=== PATIENT | male | born 1965 | race Caucasian/White ===

== ENCOUNTER 2024-08-17 22:21 | Inpatient (IN) | payer OTHER ==
--- NOTE | 2024-08-17 22:32 | ED ---
Chest Pain HPI - General Chief Complaint: Chest Pain Stated Complaint: CARDIAC Time Seen by Provider: 08/17/24 22:29 Source: patient, RN notes reviewed, old records reviewed Mode of arrival: EMS Limitations: no limitations - History of Present Illness Initial Comments: This is a 58-year-old female to the ER for evaluation of chest pain excepted in transfer from outside facility for chest pain with EKG changes. Transfer physician spoke with cardiology who is aware of this patient. Patient still has left-sided chest pain here in the ER no shortness of breath and no active diaphoresis, patient did say he had a near syncopal lightheaded event at prior hospitalization MD Complaint: chest pain -: hour(s) Onset: during rest Pain Location: left chest Severity: moderate Severity scale (1-10): 7 Quality: sharp Improves With: nothing Worsens With: nothing Anginal Symptoms: diaphoresis Treatments Prior to Arrival: none - Related Data Home Medications Medication Instructions Recorded Confirmed Metoprolol Tartrate 25 mg PO DAILY 08/01/15 08/01/15 Simvastatin 20 mg PO DAILY 08/01/15 08/01/15 Allergies Allergy/AdvReac Type Severity Reaction Status Date / Time No Known Allergies Allergy Verified 08/01/15 00:09 Review of Systems ROS Statement: Those systems with pertinent positive or pertinent negative responses have been documented in the HPI. ROS Other: All systems not noted in ROS Statement are negative. EKG Findings - EKG Comments: EKG Findings:: EKG is sinus tachycardia 102 TN 167 QRS 110 QTc 426, patient does have aVR ST elevation with diffuse ST depression throughout - EKG Results: EKG: interpreted by ALEXANDERD Past Medical History Past Medical History: Hyperlipidemia, Hypertension History of Any Multi-Drug Resistant Organisms: MRSA Date of last positivie culture/infection: 2009 MDRO Source:: head Past Surgical History: Appendectomy, Orthopedic Surgery Additional Past Surgical History / Comment(s): heart sx Past Psychological History: No Psychological Hx Reported Smoking Status: Never smoker Past Alcohol Use History: None Reported Past Drug Use History: None Reported General Exam Limitations: no limitations General appearance: alert, in no apparent distress, anxious, lethargic Head exam: Present: atraumatic, normocephalic, normal inspection Eye exam: Present: normal appearance, PERRL, EOMI. Absent: scleral icterus, conjunctival injection, periorbital swelling ENT exam: Present: normal exam, mucous membranes moist Neck exam: Present: normal inspection. Absent: tenderness, meningismus, lymphadenopathy Respiratory exam: Present: normal lung sounds bilaterally. Absent: respiratory distress, wheezes, rales, rhonchi, stridor Cardiovascular Exam: Present: regular rate, normal rhythm, normal heart sounds. Absent: systolic murmur, diastolic murmur, rubs, gallop, clicks GI/Abdominal exam: Present: soft, normal bowel sounds. Absent: distended, tenderness, guarding, rebound, rigid Extremities exam: Present: normal inspection, full ROM, normal capillary refill. Absent: tenderness, pedal edema, joint swelling, calf tenderness Back exam: Present: normal inspection Neurological exam: Present: alert, oriented X3, CN II-XII intact Psychiatric exam: Present: normal affect, normal mood Skin exam: Present: warm, dry, intact, normal color. Absent: rash Course Vital Signs 08/17/24 08/17/24 08/17/24 22:23 22:30 22:45 Temperature 97.7 F Pulse Rate 102 H 107 H 98 Respiratory 12 20 14 Rate Blood Pressure 130/68 112/82 118/75 O2 Sat by Pulse 90 L 95 98 Oximetry 08/17/24 08/17/24 23:00 23:15 Temperature Pulse Rate 94 86 Respiratory 13 13 Rate Blood Pressure 94/64 119/74 O2 Sat by Pulse 98 98 Oximetry - Reevaluation(s) Reevaluation #1: 08/17/24 23:24 Medical records reviewed Transferring paperwork and initial EKG is reviewed, troponin negative Chest x-ray reviewed also negative Patient still with left-sided chest pain Reevaluation #2: 08/17/24 23:25 Patient remains with left-sided chest pain Patient is taken off dopamine with normal heart rate 90s Patient does have low oxygen needing supplemental O2 88% Reevaluation #3: 08/17/24 23:33 Patient symptoms unchanged Reevaluation #4: Was pt. sent in by a medical professional or institution (, PA, PRODUCTION MATERIAL HANDLER, urgent care, hospital, or usp...) When possible be specific @ -no Did you speak to anyone other than the patient for history (EMS, parent, family, police, friend...)? What history was obtained from this source @ -no Did you review nursing and triage notes (agree or disagree)? Why? @ -agree Are old charts reviewed (outside hosp., previous admission, EMS record, old EKG, old radiological studies, urgent care reports/EKG's, usp records)? Report findings @ -yes Differential Diagnosis (chest pain, altered mental status, abdominal pain women, abdominal pain men, vaginal bleeding, weakness, fever, dyspnea, syncope, headache, dizziness, GI bleed, back pain, seizure, CVA, palpatations, mental health, musculoskeletal)? @ -prior EKG interpreted by me (3pts min.). @ -yes X-rays interpreted by me (1pt min.). @ -yes negative for acute disease CT interpreted by me (1pt min.). @ -no U/S interpreted by me (1pt. min.). @ -no What testing was considered but not performed or refused? (CT, X-rays, U/S, labs)? Why? @ -none What meds were considered but not given or refused? Why? @ -none Did you discuss the management of the patient with other professionals (professionals i.e. , PA, PRODUCTION MATERIAL HANDLER, lab, RT, psych nurse, licensed master social worker, senior boiler operator, teacher, upscale security officer, pillowcase maker)? Give summary @ -no Was smoking cessation discussed for >3mins.? @ -no Was critical care preformed (if so, how long)? @ -no Were there social determinants of health that impacted care today? How? (Homelessness, low income, unemployed, alcoholism, drug addiction, transportation, low edu. Level, literacy, decrease access to med. care, skilled nursing, rehab)? @ -none Was there de-escalation of care discussed even if they declined (Discuss DNR or withdrawal of care, Hospice)? DNR status @ -no What co-morbidities impacted this encounter? (DM, HTN, Smoking, COPD, CAD, Cancer, CVA, ARF, Chemo, Hep., AIDS, mental health diagnosis, sleep apnea, morbid obesity)? @ -none Was patient admitted / discharged? Hospital course, mention meds given and route, prescriptions, significant lab abnormalities, going to OR and other pertinent info. @ - Undiagnosed new problem with uncertain prognosis? @ -no Drug Therapy requiring intensive monitoring for toxicity (Heparin, Nitro, Insulin, Cardizem)? @ -no Were any procedures done? @ -no Diagnosis/symptom? @ - Acute, or Chronic, or Acute on Chronic? @ -Acute Uncomplicated (without systemic symptoms) or Complicated (systemic symptoms)? @ -Complicated Side effects of treatment? @ -no Exacerbation, Progression, or Severe Exacerbation? @ -exacerbation Poses a threat to life or bodily function? How? (Chest pain, [place], [place], pneumonia, PE, COPD, DKA, ARF, appy, cholecystitis, CVA, Diverticulitis, Homicidal, Suicidal, threat to staff... and all critical care pts) @ -yes Reevaluation #5: Differential Chest Pain: Stable Angina, Unstable Angina, STEMI, NSTEMI Aortic Dissection, Pneumothorax, Musculoskeletal, Esophageal Spasm GERD, Cholecystitis, Pancreatitis, Zoster, this is not meant to be an all-inclusive list. - Consultations Consultation #1: Spoke with [facility] who agrees to admit this patient Chest Pain MDM - MDM 58 male excepted in transfer from outside facility, [facility] for acute coronary syndrome on heparin Critical Care Time Critical Care Time: Yes Total Critical Care Time: 31 Disposition Clinical Impression: Chest pain, Atypical chest pain, ACS (acute coronary syndrome) Disposition: ADMITTED IP TO THIS [facility] Condition: Serious Is patient prescribed a controlled substance at d/c from ED?: No Referrals: Litzy Navarro DO [Primary Care Provider] - 1-2 days Time of Disposition: 23:29
[2024-08-17] MEDS: NITROGLYCERIN OINT 1 INCH/GM PACKET TOPICAL STA (22:36)
[2024-08-17] MEDS: SODIUM CHLORIDE 0.9% 1,000 ML IV STA (22:36)
[2024-08-17 23:02] LABS: Basophils % (A) 0 %; Eosinophils # (A) 0.2 k/uL (0-0.7); Eosinophils % (A) 2 %; HCT 45.4 % (39.0-53.0); HGB 14.8 gm/dL (13.0-17.5); Lymphocytes # (A) 1.6 k/uL (1.0-4.8); Lymphocytes % (A) 17 %; MCH 29.3 pg (25.0-35.0); MCHC 32.6 g/dL (31.0-37.0); MCV 90.1 fL (80.0-100.0); Mean Platelet Volume 7.7; Monocytes # (A) 0.4 k/uL (0-1.0); Monocytes % (A) 5 %; Neutrophils # (A) 6.7 k/uL (1.3-7.7); Neutrophils % (A) 74 %; Platelet Count 229 k/uL (150-450); RBC 5.04 m/uL (4.30-5.90); RDW 12.5 % (11.5-15.5)
[2024-08-17 23:11] LABS: ALT 36 U/L (4-49); AST 34 U/L (17-59); African American GFR (CKD) >90 (>60 ml/min/1.73 sqM); Albumin 3.8 g/dL (3.5-5.0); Alkaline Phosphatase 86 U/L (38-126); Anion Gap 9 mmol/L; Blood Urea Nitrogen 14 mg/dL (9-20); Calcium 8.5 mg/dL (8.4-10.2); Carbon Dioxide 25 mmol/L (22-30); Chloride 103 mmol/L (98-107); Glucose 130 mg/dL (74-99); Lipase 152 U/L (23-300); Non-African American GFR(CKD) 88 (>60 ml/min/1.73 sqM); Potassium 3.4 mmol/L (3.5-5.1); Sodium 137 mmol/L (137-145); Total Bilirubin 0.8 mg/dL (0.2-1.3); Total Protein 6.6 g/dL (6.3-8.2)
[2024-08-17 23:12] LABS: Partial Thromboplastin Time 47.7 sec (22.0-30.0); Prothrombin Time 11.4 sec (10.0-12.5)
[2024-08-17 23:19] LABS: NT-Pro-B-Type Natriuretic Pept 156 pg/mL
--- NOTE | 2024-08-17 23:37 | CT ---
EXAM: CT Angiography Chest With Intravenous Contrast CLINICAL HISTORY: ITS.REASON CT Reason: cp TECHNIQUE: Axial computed tomographic angiography images of the chest with intravenous contrast. CTDI is 67 mGy and DLP is 718.6 mGy-cm. This CT exam was performed using one or more of the following dose reduction techniques: automated exposure control, adjustment of the mA and/or kV according to patient size, and/or use of iterative reconstruction technique. MIP reconstructed images were created and reviewed. COMPARISON: None FINDINGS: Pulmonary arteries: Unremarkable. No definite urinary embolus identified. Aorta: No acute findings. No aortic aneurysm or dissection. Lungs: Mild dependent atelectasis bilaterally. No focal consolidation. Pleural space: Unremarkable. No significant effusion. No pneumothorax. Heart: Unremarkable. No cardiomegaly. No significant pericardial effusion. No evidence of RV dysfunction. Bones/joints: Mild curvature of the spine. Chronic appearing compression deformity of L1. No dislocation. Soft tissues: Unremarkable. Lymph nodes: Unremarkable. No enlarged lymph nodes. Liver: Small hypodensities in the liver are too small to definitively characterize. IMPRESSION: 1. No definite urinary embolus identified. 2. No aortic aneurysm or dissection. 3. No acute pulmonary parenchymal abnormality identified.
--- NOTE | 2024-08-17 23:44 | CT ---
EXAM: CT Head Without Intravenous Contrast CLINICAL HISTORY: ITS.REASON CT Reason: cp TECHNIQUE: Axial computed tomography images of the head/brain without intravenous contrast. CTDI is 49.2 mGy and DLP is 1171 mGy-cm. This CT exam was performed using one or more of the following dose reduction techniques: automated exposure control, adjustment of the mA and/or kV according to patient size, and/or use of iterative reconstruction technique. COMPARISON: None FINDINGS: Brain: No acute infarct or hemorrhage. No extra-axial fluid collection. No mass effect or midline shift. Ventricles and sulci: Normal. No ventriculomegaly or intraventricular hemorrhage. Bones: Old fracture deformities of the nasal bones. No bony lesion or acute fracture. Subcutaneous tissues: Normal. Sinuses: Mild mucosal thickening and fluid in the maxillary sinuses. Please correlate for acute sinusitis. Mild mucosal thickening in the ethmoid air cells. Mastoid air cells: Normal. Orbits: Right lens implant. IMPRESSION: No acute intracranial abnormality.
[2024-08-17] MEDS: ASPIRIN 81 MG PO STA (23:52)
[2024-08-17] MEDS: HEPARIN SOD,PORK IN 0.45% NACL 25,000 UNIT in 0.45% NACL 1 250ML.BAG IV SCH (23:57)
[2024-08-17] MEDS: POTASSIUM BICARBONATE/CIT AC 20 MEQ TABLET.EFF PO ONE (23:59)
[2024-08-17] MEDS: ATORVASTATIN 80 MG TAB PO SCH (23:59)
[2024-08-18 05:48] LABS: Mean Platelet Volume 7.6; Platelet Count 213 k/uL (150-450)
[2024-08-18] MEDS: METOPROLOL TARTRATE 25 MG TAB PO SCH (08:43)
[2024-08-18] MEDS: ASPIRIN 325 MG TAB PO SCH (08:43)
[2024-08-18] MEDS: HEPARIN SODIUM 1,000 UN/ML (10ML VL) IV PRN (08:50)
[2024-08-18 10:43] LABS: LDL Cholesterol,Calculated 122.8 mg/dL (0.0-131.0)
--- NOTE | 2024-08-18 11:37 | P.HPIM ---
History of Present Illness This is a pleasant 58 years old male with past medical history of hypertension and hyperlipidemia was transferred from outside facility for chest pain. Patient states that he has some chest pain from coughing in the middle of his ch est about what he bothering him was the pain developed on his left lateral side of his chest which goes behind to the left shoulder blade and associated with some difficulty in his left arm. He rates the pain about 7/10. Feels like a tourniquet around his left arm and also something grabbing around his neck. He denies shortness of breath, no coughing or phlegm. No specific abdominal pain, no urinary complaint. Patient states that he has chronic numbness in his left lower extremity. Patient's vitals are stable Patient is afebrile, blood pressure controlled, he has unremarkable CBC, BMP, LFT and INR. Troponin x 3 are negative less than 0.012. D-dimer is negative at 0.35 BNP is 156. EKG: Showing sinus rhythm at [address]-T changes Review of Systems Review of systems CONSTITUTIONAL: No fever, no malaise, no fatigue. HEENT: No recent visual problems or hearing problems. Denied any sore throat. CARDIOVASCULAR: No orthopnea, PND, no palpitations, no syncope. PULMONARY: No shortness of breath, no cough, no hemoptysis. GASTROINTESTINAL: No diarrhea, no nausea, no vomiting, no abdominal pain. Normoactive bowel sounds. NEUROLOGICAL: No headaches, no weakness, no numbness. HEMATOLOGICAL: Denies any bleeding or petechiae. GENITOURINARY: Denies any burning micturition, frequency, or urgency. MUSCULOSKELETAL/RHEUMATOLOGICAL: Denies any joint pain, swelling, or any muscle pain. ENDOCRINE: Denies any polyuria or polydipsia. Past Medical History Past Medical History: Hyperlipidemia, Hypertension History of Any Multi-Drug Resistant Organisms: MRSA Date of last positivie culture/infection: 2009 MDRO Source:: head Past Surgical History: Appendectomy, Orthopedic Surgery Additional Past Surgical History / Comment(s): heart sx Past Psychological History: No Psychological Hx Reported Smoking Status: Never smoker Past Alcohol Use History: None Reported Past Drug Use History: None Reported Medications and Allergies Home Medications Medication Instructions Recorded Confirmed Type Amoxicillin 500 mg PO BID 08/18/24 08/18/24 History Metoprolol Succinate (ER) [Toprol 25 mg PO DAILY 08/18/24 08/18/24 History Xl] lisinopriL [Zestril] 40 mg PO DAILY 08/18/24 08/18/24 History Allergies Allergy/AdvReac Type Severity Reaction Status Date / Time No Known Allergies Allergy Verified 08/18/24 07:49 Physical Exam Vitals: Vital Signs Temp Pulse Resp BP Pulse Ox 08/18/24 10:00 76 20 140/90 95 08/18/24 08:00 67 20 135/83 95 08/18/24 06:00 59 L 15 107/80 95 08/18/24 04:00 61 18 106/76 97 08/18/24 02:00 98.2 F 98 15 90/69 96 08/18/24 00:00 78 13 120/87 97 08/17/24 23:45 89 14 132/82 98 08/17/24 23:15 86 13 119/74 98 08/17/24 23:00 94 13 94/64 98 08/17/24 22:45 98 14 118/75 98 08/17/24 22:30 107 H 20 112/82 95 08/17/24 22:23 97.7 F 102 H 12 130/68 90 L Intake and Output 08/17/24 08/18/24 08/18/24 22:59 06:59 14:59 Intake Total 88.833 Balance 88.833 Intake: Intake, IV Titration 88.833 Amount Heparin Sod,Pork in 0.45% 88.833 NaCl 25,000 unit In 0.45 % NaCl 1 250ml.bag @ 11. 023 UNITS/KG/HR 10 mls/hr IV .Q24H [facility] Rx#: [id number] Other: Weight 90.718 kg GENERAL: The patient is alert and oriented x3, not in any acute distress. Well developed, well nourished. HEENT: Pupils are round and equally reacting to light. EOMI. No scleral icterus. No conjunctival pallor. Normocephalic, atraumatic. No pharyngeal erythema. No thyromegaly. CARDIOVASCULAR: S1 and S2 present. No murmurs, rubs, or gallops. PULMONARY: Chest is clear to auscultation, no wheezing , no crackles. ABDOMEN: Soft, nontender, nondistended, normoactive bowel sounds. No palpable organomegaly. MUSCULOSKELETAL: No joint swelling or deformity. EXTREMITIES: No cyanosis, clubbing, or pedal edema. NEUROLOGICAL: Gross neurological examination did not reveal any focal deficits. SKIN: No rashes. no petechiae. Results CBC & Chem 7: 08/18/24 05:29 08/17/24 22:35 Labs: Abnormal Lab Results - Last 24 Hours (Table) 08/17/24 08/17/24 08/18/24 Range/Units 22:35 22:35 00:16 APTT 47.7 H 36.3 H (22.0-30.0) sec Potassium 3.4 L (3.5-5.1) mmol/L Glucose 130 H (74-99) mg/dL Triglycerides (0.00-149.00) mg/dL HDL Cholesterol (40.00-60.00) mg/dL 08/18/24 08/18/24 Range/Units 05:29 05:29 APTT 33.5 H (22.0-30.0) sec Potassium (3.5-5.1) mmol/L Glucose (74-99) mg/dL Triglycerides 152.00 H (0.00-149.00) mg/dL HDL Cholesterol 34.80 L (40.00-60.00) mg/dL Assessment and Plan Assessment: Chest pain, rule out acute coronary syndrome, could be unstable angina. Negative D-dimer At 0.35 Hypertension Hyperlipidemia Plan: Continue with heparin drip Continue with aspirin Check echocardiogram per visual display associate Follow-up TSH Cardiology team consult Labs and medication were reviewed.. Continue same treatment. Continue with sym ptomatic treatment. Resume home medication. Monitor labs and vitals. DVT and GI prophylaxis. Further recommendations as per clinical course of the patient DVT prophylaxis: Subcutaneous heparin GI Prophylaxis: Pepcid PT/OT: Pending Prognosis is guarded
[2024-08-18] MEDS: amLODIPine 5 MG TAB PO SCH (12:32)
[2024-08-18] MEDS: lisinopriL 20 MG TAB PO SCH (12:33)
[2024-08-18] MEDS: NITROGLYCERIN SL TABS 0.4 MG TAB SUBLINGUAL PRN (17:12)
[2024-08-18] MEDS ORDERED: NITROGLYCERIN SL TABS 0.4 MG TAB SUBLINGUAL PRN (17:40)
[2024-08-18] MEDS: ISOSORBIDE MONONITRATE ER 30 MG TAB.ER.24H PO SCH (18:08)
[2024-08-18] MEDS: METOPROLOL TARTRATE 25 MG TAB PO STA (18:08)
--- NOTE | 2024-08-18 18:23 | CA ---
Transthoracic Echo Report Name: Jalen Conrad Age: 58 Gender: M : 1965 Exam Date: 08/18/2024 09:24 Exam Location: [place] [facility] Ht (in): 69 Wt (lb): 200 Ordering Physician: Chung Song DO Attending/Referring Phys: [id number], Nohemi Nurse Esthetician Pricila Hearn RDCS Procedure CPT: Indications: ACS Cardiac Hx: Technical Quality: Fair Contrast 1: Total Dose (mL): Contrast 2: Total Dose (mL): MEASUREMENTS (Male / Female) Normal Values 2D ECHO LV Diastolic Diameter PLAX 6.2 cm 4.2 - 5.9 / 3.9 - 5.3 cm LV Systolic Diameter PLAX 3.7 cm IVS Diastolic Thickness 0.8 cm 0.6 - 1.0 / 0.6 - 0.9 cm LVPW Diastolic Thickness 0.9 cm 0.6 - 1.0 / 0.6 - 0.9 cm LV Relative Wall Thickness 0.3 LVOT Diameter 2.3 cm Aortic Root Diameter 3.0 cm LV Diastolic Volume MOD BP 99.9 cm??? 67 - 155 / 56 - 104 cm??? LV Systolic Volume MOD BP 39.7 cm??? 22 - 58 / 19 - 49 cm??? LV Ejection Fraction MOD BP 60.2 % >= 55 % LV Cardiac Index MOD BP 1613.6 cm???/min???m??? LV Diastolic Volume MOD 4C 106.8 cm??? LV Systolic Volume MOD 4C 38.0 cm??? LV Ejection Fraction MOD 4C 64.4 % LV Cardiac Index MOD 4C 1847.1 cm???/min???m??? LV Diastolic Length 4C 7.8 cm LV Systolic Length 4C 6.5 cm LV Diastolic Volume MOD 2C 92.8 cm??? LV Systolic Volume MOD 2C 39.4 cm??? LV Ejection Fraction MOD 2C 57.5 % LV Cardiac Index MOD 2C 1433.4 cm???/min???m??? LV Diastolic Length 2C 7.9 cm LV Systolic Length 2C 6.9 cm Ascending Aorta Diameter 3.3 cm DOPPLER AV Peak Velocity 164.2 cm/s AV Peak Gradient 10.8 mmHg AV Mean Velocity 105.3 cm/s AV Mean Gradient 5.2 mmHg AV Velocity Time Integral 29.2 cm LVOT Peak Velocity 106.4 cm/s LVOT Peak Gradient 4.5 mmHg LVOT Velocity Time Integral 21.1 cm LVOT Stroke Volume 85.4 cm??? LVOT Stroke Volume Index 41.4 ml/m??? LVOT Cardiac Index 2292.4 cm???/min???m??? AV Area Cont Eq vti 2.9 cm??? AV Area Cont Eq pk 2.6 cm??? Mitral E Point Velocity 86.1 cm/s Mitral A Point Velocity 54.7 cm/s Mitral E to A Ratio 1.6 MV Deceleration Time 139.8 ms MV E' Velocity 6.0 cm/s Mitral E to MV E' Ratio 14.3 TR Peak Velocity 12.1 cm/s TR Peak Gradient 0.1 mmHg Right Atrial Pressure 5.0 mmHg Pulmonary Artery Systolic Pressu 5.1 mmHg Right Ventricular Systolic Press 5.1 mmHg PV Peak Velocity 77.5 cm/s PV Peak Gradient 2.4 mmHg FINDINGS Left Ventricle Left ventricular ejection fraction is estimated at 60 %. Mildly increased left ventricular diastolic diameter. Left ventricular cavity size normal. No obvious regional wall motion abnormalities. Right Ventricle Normal right ventricular size and function. Right ventricular systolic pressure within normal limits. Right Atrium Normal right atrial size. Left Atrium Normal left atrial size. Mitral Valve Structurally normal mitral valve. No evidence for mitral valve prolapse. No mitral stenosis. Trace mitral regurgitation. Aortic Valve Trileaflet aortic valve. No aortic stenosis. Mild aortic regurgitation. Tricuspid Valve Structurally normal tricuspid valve. No tricuspid stenosis. Trace tricuspid regurgitation. Pulmonic Valve Structurally normal pulmonic valve. No pulmonic stenosis. Mild pulmonic regurgitation. Pericardium No pericardial effusion. Aorta Normal size aortic root and proximal ascending aorta. CONCLUSIONS Indication for procedure: Acute coronary syndrome Normal LV size and function Prominent posterior pericardial stripe Previewed by: Dr. Jonn Lockwood MD (Electronically Signed) Final Date: 18 August 2024 18:21
[2024-08-18] MEDS: ALPRAZolam 0.25 MG TAB PO PRN (19:55)
[2024-08-18] MEDS: ACETAMINOPHEN TAB 500 MG TAB PO PRN (20:42)
[2024-08-18] MEDS: FAMOTIDINE 20 MG TAB PO SCH (20:42)
[2024-08-18] MEDS ORDERED: FAMOTIDINE 20 MG/2 ML VIAL IV SCH (21:00)
[2024-08-18] MEDS: ONDANSETRON 4 MG/2 ML VIAL IVP PRN (21:56)
[2024-08-18] MEDS: MORPHINE SULFATE 4 MG/ML SYRINGE IV PRN (21:56)
[2024-08-19] MEDS: SODIUM CHLORIDE 0.9% 1,000 ML in EMPTY BAG 1 BAG IV SCH ×2 (05:11→10:48)
[2024-08-19 06:30] LABS: Mean Platelet Volume 7.3; Platelet Count 222 k/uL (150-450)
[2024-08-19] MEDS: ASPIRIN 81 MG PO SCH (07:24)
--- NOTE | 2024-08-19 07:48 | P.CRDCN ---
History of Present Illness Consult date: 08/18/24 History of present illness: HISTORY OF PRESENTING ILLNESS: 58-year-old male with past medical history of hypertension dyslipidemia transferred from outside facility because of chest pressure and back pain. Patient reports his primary complaint is back pain which would come and go and some associated tightness in the left arm. Feels like torn cord around his left arm and also someone grabbing around his neck. He has not had any prior cardiac problems that he reports of. On admission troponin x 3 were negative, LDL 122, TG 152, TSH 1.2, A1c 5.6, NT- proBNP 165. BP 144/96, heart rate 75 bpm Admission EKG shows sinus tachycardia with diffuse ST depressions of 1 to 2 mm in inferolateral leads At the time of evaluation it was felt appropriate to offer patient treadmill based stress test however patient received a beta-svetlana therefore the stress of could not be done yesterday and was scheduled for tomorrow. Later in the day patient had similar type of tightness in the neck, left and right arm and back pain with dynamic EKG changes showing mild ST depressions and T wave inversions in his lateral leads. Due to this we made a decision of proceeding with heart catheterization scheduling a stress test. Procedural steps of cardiac catheterization, indication, and potential complications were explained to the patient. I explained to her potential risk of stroke, NC, vascular injury, to the patient. Patient would like to proceed with heart catheterization procedure understanding these potential complications. REVIEW OF SYSTEMS: 14 point review of system is negative except what is mentioned above in HPI. PHYSICAL EXAMINATION: Neck: Brisk carotid upstroke, no jugular venous distention. Lungs: Clear to auscultation. Heart: Regular rate and rhythm, S1-S2, , no murmur or rub. Abdomen: Soft nontender, positive bowel sounds. Extremities: No edema, intact distal pulses. Neuro: Alert, oritented, no focal deficits. Detailed neuro exam was not performed. ASSESSMENT: # Unstable angina # Essential hypertension # Dyslipidemia PLAN: Plan for cardiac authorization tomorrow Aspirin 81 mg, Lipitor 80 mg, amlodipine 5 mg, lisinopril 40 mg Metoprolol 25 mg twice daily Further recommendations to follow Osmar Kruger MD, FACC, RPVI Thank you for allowing [facility] to participate in this patient's care. Feel free to reach out in case of any followup questions. Past Medical History Past Medical History: Hyperlipidemia, Hypertension History of Any Multi-Drug Resistant Organisms: MRSA Date of last positivie culture/infection: 2009 MDRO Source:: head Past Surgical History: Appendectomy, Orthopedic Surgery Additional Past Surgical History / Comment(s): heart sx Past Psychological History: No Psychological Hx Reported Smoking Status: Never smoker Past Alcohol Use History: None Reported Past Drug Use History: None Reported Medications and Allergies Home Medications Medication Instructions Recorded Confirmed Type Amoxicillin 500 mg PO BID 08/18/24 08/18/24 History Metoprolol Succinate (ER) [Toprol 25 mg PO DAILY 08/18/24 08/18/24 History Xl] lisinopriL [Zestril] 40 mg PO DAILY 08/18/24 08/18/24 History Allergies Allergy/AdvReac Type Severity Reaction Status Date / Time No Known Allergies Allergy Verified 08/18/24 07:49 Physical Exam Vitals: Vital Signs Temp Pulse Resp BP Pulse Ox 08/19/24 07:00 68 16 156/98 98 08/19/24 05:47 98.1 F 73 16 101/63 98 08/19/24 03:46 59 L 16 113/70 95 08/18/24 22:36 80 18 137/85 95 08/18/24 19:32 75 16 144/96 96 08/18/24 17:10 116 H 20 170/100 95 08/18/24 15:00 87 20 134/88 95 08/18/24 12:59 86 20 136/83 96 08/18/24 11:43 56 L 20 126/77 95 08/18/24 10:00 76 20 140/90 95 08/18/24 08:00 67 20 135/83 95 Results 08/19/24 05:45 08/17/24 22:35 Coagulation 08/18/24 08/18/24 Range/Units 13:07 18:18 APTT 27.0 25.2 (22.0-30.0) sec Lipids 08/18/24 Range/Units 05:29 Triglycerides 152.00 H (0.00-149.00) mg/dL Cholesterol 188.00 (0.00-200.00) mg/dL HDL Cholesterol 34.80 L (40.00-60.00) mg/dL Cholesterol/HDL Ratio 5.40 Ratio CBC 08/19/24 Range/Units 05:45 Plt Count 222 (150-450) k/uL Current Medications Generic Name Dose Route Start Last Admin Trade Name Freq PRN Reason Stop Dose Admin Acetaminophen 500 mg 08/18/24 20:36 08/18/24 20:42 Acetaminophen Tab 500 Mg Tab PO 500 mg Q6HR PRN Administration Fever and/ or Pain Alprazolam 0.25 mg 08/18/24 17:40 08/18/24 19:55 Alprazolam 0.25 Mg Tab PO 0.25 mg Q6HR PRN Administration Mild Anxiety Amlodipine Besylate 5 mg 08/18/24 10:15 08/18/24 12:32 Amlodipine 5 Mg Tab PO 5 mg DAILY DAMIÁN Administration Aspirin 81 mg 08/19/24 09:00 08/19/24 07:24 Aspirin 81 Mg PO 81 mg DAILY DAMIÁN Administration Atorvastatin Calcium 80 mg 08/17/24 23:45 08/19/24 07:24 Atorvastatin 80 Mg Tab PO 80 mg DAILY DAMIÁN Administration Famotidine 20 mg 08/18/24 21:00 08/18/24 20:42 Famotidine 20 Mg Tab PO 20 mg BID DAMIÁN Administration Heparin Sodium (Porcine) 10, 1,001 mls @ 999 mls/hr 08/19/24 07:00 000 unit/ Sodium Chloride IRRIGATION 08/19/24 23:00 ONCE PRN INTRA-OP Heparin Sodium (Porcine) 2,500 250.5 mls @ 250 mls/hr 08/19/24 07:00 unit/ Sodium Chloride IRRIGATION 08/19/24 23:00 ONCE PRN INTRA-OP Sodium Chloride 1,000 ml/ IV 1,000 mls @ 75 mls/hr 08/19/24 04:00 08/19/24 05:11 Solution IV 08/19/24 09:59 75 mls/hr .[id number] DAMIÁN Administration Isosorbide Mononitrate 30 mg 08/18/24 17:45 08/18/24 18:08 Isosorbide Mononitrate Er 30 Mg Tab.Er.24h PO 30 mg DAILY DAMIÁN Administration Lisinopril 40 mg 08/18/24 10:15 08/18/24 12:33 Lisinopril 20 Mg Tab PO 40 mg DAILY DAMIÁN Administration Metoprolol Tartrate 25 mg 08/18/24 09:00 08/18/24 20:43 Metoprolol Tartrate 25 Mg Tab PO 25 mg BID DAMIÁN Administration Morphine Sulfate 4 mg 08/17/24 23:29 08/18/24 21:56 Morphine Sulfate 4 Mg/Ml Syringe IV 4 mg Q4HR PRN Administration Chest Pain Nitroglycerin 0.4 mg 08/17/24 23:29 08/18/24 17:17 Nitroglycerin Sl Tabs 0.4 Mg Tab SUBLINGUAL 0.4 mg Q5M PRN Administration Chest Pain Ondansetron HCl 4 mg 08/18/24 21:41 08/18/24 21:56 Ondansetron 4 Mg/2 Ml Vial IVP 4 mg Q6HR PRN Administration Nausea And Vomiting 08/19/24 05:45 08/17/24 22:35
[2024-08-19] MEDS: IV FLUID CONTINUATION 1,000 ML IV ONE (07:50)
[2024-08-19] MEDS: MIDAZOLAM 2 MG/2 ML VIAL IVP ONE (07:55)
[2024-08-19] MEDS: fentaNYL (PF) 50 MCG/1 ML VIAL IVP ONE (07:55)
[2024-08-19] MEDS: LIDOCAINE 1% INJ 10MG/ML (20 ML MDV) SQ ONE (08:00)
[2024-08-19] MEDS: VERAPAMIL SYRINGE (5 MG/10 ML) INTRAARTER ONE (08:01)
[2024-08-19] MEDS: HEPARIN SODIUM 1,000 UN/ML (10ML VL) IV ONE (08:04)
[2024-08-19] MEDS: HEPARIN SODIUM,PORCINE (1 ML) 2,500 UNIT in SODIUM CHLORIDE 0.9% 250 ML IRRIGATION PRN (08:09)
[2024-08-19] MEDS: HEPARIN SODIUM,PORCINE 10,000 UNIT in SODIUM CHLORIDE 0.9% 1,000 ML IRRIGATION PRN (08:09)
--- NOTE | 2024-08-19 08:31 | P.CARDCATH ---
Date of Procedure: 08/19/24 Description of Procedure: DIAGNOSTIC CORONARY ANGIOGRAPHY and LEFT HEART CATH REPORT PROCEDURES PERFORMED: Left heart catheterization Selective coronary angiography Moderate conscious sedation 16 mins Right radial access INDICATION: Unstable angina, abnormal EKG BRIEF HPI: 58-year-old with history of hypertension and dyslipidemia presented to the hospital because of back pain left arm and neck pain. On admission his troponins were not elevated however EKG showed dynamic changes in ST segment and T waves specially in V4 and V5 with new T wave inversions in association with back pain and arm pain. For this he was scheduled for a heart catheterization procedure. CONSENT: I have explained the procedural steps of above-mentioned procedures in layman's terms to the patient. I discussed the risks (including but not limited to stroke, emergent vascular or cardiac surgery or ), benefits and al ternative therapies for the above-mentioned procedure. I discussed the risks of sedation/analgesia and blood product administration (if indicated). The patient has indicated understanding and acceptance of these risks. Conscious Sedation: Patient's ECG, heart rate, blood pressure, pulse oximetry were monitored throughout the duration of procedure under my direct supervision. 1 mg Versed and 50 mcg Fentanyl were used for induction of moderate conscious sedation. Total duration of moderate concious sedation 16 minutes. PROCEDURAL DETAILS: Patient was prepped and draped in sterile fashion. 1% lidocaine was infiltrated over the right radial artery. Right radial access was obtained via modified seldinger technique. Medications: 5mg of verapamil was administed in the radial sheet. 5000 units of Heparin was administed once the catheter reached the aortic root Wires and Catheter used: J wire was advanced under fluroscopy to get to aortic root. 5 tanzanian JR 4 diagnostic catheter was utilized obtain left ventricular pressure and pressure gradint across aortic valve. 5 tanzanian JR 4 diagnostic catheter was used to selectively engage the right coronary ostium. 5 tanzanian JL 3.5 diagnostic catheter was utilized to selectively engage the left coronary ostium. Angiographic images were reviewed in detail. Catheter and wire were removed. Radial sheet was flushed. TECHNICAL DETAILS Total radiation: 295 mGy Total fluro time: 2.1 minutes Total contrast used: Isovue 50 mL Complications: [none] Estimated Blood loss: less than 15 ml HEMODYNAMICS: Aortic Pressure: 142 over 87 mmHg mmHg. LV pressure: 144/10 mmHg. LVEDP 20 mmHg. There was no significant gradient across the aortic valve. SELECTIVE CORONARY ARTERIOGRAPHY: LEFT MAIN: The left main is short and large caliber vessel. It bifurcates into the LAD and circumflex. Left main appears angiographically normal. LEFT ANTERIOR DESCENDING CORONARY ARTERY: LAD is a large caliber vessel which wraps around to the apex. Proximal LAD is angiographically patent. It gives rise to a large caliber diagonal branch which appears angiographically patent. Distal artery given diagonal branch mid LAD has 80% diffuse tubular stenosis. The segment of LAD gives rise to small septal branches. Distal portion of mid LAD and distal LAD occlusion. LEFT CIRCUMFLEX CORONARY ARTERY: It is nondominant vessel. LCx is moderate- caliber vessel. Proximal LCx is angiographically patent. Proximal LCx gives rise to a "high origin" OM1 which is a medium caliber vessel. Ostium of OM1 has 50% disease. After giving OM1, mid LCx gives rise to small OM branches and distally continues to become an OM branch. It appears angiographically patent. RIGHT CORONARY ARTERY: Dominant vessel. The right coronary artery is a large caliber vessel which gives PDA and PLV branch. It appears angiographically patent. IMPRESSION: 80% mid LAD stenosis 50% ostial OM1 disease PLAN: Plan for IFR/PCI of mid LAD with Dr. Diamond Performing Physician Osmar Kruger MD, FACC, RPVI Thank you for allowing [facility] to participate in this patient's care. Feel free to reach out in case of any followup questions.
[2024-08-19] MEDS: CLOPIDOGREL 75 MG TAB PO ONE (08:32)
[2024-08-19] MEDS: IOPAMIDOL-370 100ML BTL INJ ONE ×2 (08:37→08:59)
[2024-08-19] MEDS ORDERED: MAG HYDROX/AL HYDROX/SIMETH 30 ML CUP PO PRN (09:00)
[2024-08-19] MEDS ORDERED: ZOLPIDEM 5 MG TAB PO PRN (09:00)
[2024-08-19] MEDS ORDERED: ATROPINE SULFATE 0.1 MG/ML 10ML SYRINGE IV PRN (09:00)
[2024-08-19] MEDS ORDERED: RX INFO: IV CONTRAST WAS GIVEN 1 EACH MISC MISCELLANE PRN (09:00)
[2024-08-19] MEDS ORDERED: NITROGLYCERIN SL TABS 0.4 MG TAB SUBLINGUAL PRN (09:00)
--- NOTE | 2024-08-19 09:06 | P.CARDCATH ---
Date of Procedure: 08/19/24 Description of Procedure: PERCUTANEOUS TRANSLUMINAL CORONARY ANGIOPLASTY CLINICAL INFORMATION: The patient is a 58-year-old male with a known history of hypertension and hyperlipidemia who presented with symptoms of back and chest discomfort with no enzymatic abnormalities but with dynamic EKG changes. He underwent cardiac catheterization by Dr. Kruger and was found to have a long tubular lesion in the mid LAD of about 70 to 80%. Recommendations were made regarding angioplasty and stenting. The procedure as well as the risks and the complications were discussed with the patient who was in full understanding and agreement. PROCEDURE: A 6 Kiswahili 3.5 guiding catheter was introduced into the system. After cannulating the left main, a 0.014 BMW J-wire was advanced across the lesion and positioned distally. Following that a 3.5 x 33 mm Xience rukhsana point stent was deployed. It was dilated at 16 pat. Following that a 3.5 x 15 mm NC trek balloon was advanced and 3 inflations at 12 pat were done in the stent. Subsequently a [employer] eye IVUS catheter was introduced and imaging showed good apposition of the stent. After the last inflation, after appropriate wait, the balloon and the guidewire were withdrawn back into the guiding catheter. Images were obtained and repeated. Those images reveal stable successful stenting. At that point, the guiding catheter, the balloon, and guidewire were removed. The sheath was removed. Hemostasis was obtained with deployment of a TR band. There were no immediate complications. The patient was returned to the room in stable condition. Of note, the patient received 3000 units of heparin as well as Plavix. His ACT was followed. There was no immediate complications. He had EKG changes and chest discomfort that improved at the end of the procedure. RESULTS: Successful stenting of the mid LAD with reduction of stenosis from 80% to 0% with IVUS imaging and JAY-3 flow. RECOMMENDATIONS: The patient will continue on aspirin and clopidogrel for 6 months without any interruption in addition to aggressive coronary risks modifications, maintaining LDL below 70 mg/dL. The findings and recommendations were discussed with the patient and he was in full understanding and agreement. Duration of sedation: 26 minutes
--- NOTE | 2024-08-19 16:16 | XR ---
EXAMINATION TYPE: XR chest 1V portable DATE OF EXAM: 08/19/2024 4:11 PM COMPARISON: CT chest from same date CLINICAL INDICATION: Male, 58 years old with history of shortness of breath; [facility] TECHNIQUE: XR chest 1V portable Frontal view of the chest. FINDINGS: Lungs/Pleura: There is no evidence of pleural effusion, focal consolidation, or pneumothorax. Pulmonary vascularity: Unremarkable. Heart/mediastinum: Cardiomediastinal silhouette is unremarkable. Musculoskeletal: No acute osseous pathology. IMPRESSION: No acute cardiopulmonary disease/process. [facility], , 08/19/2024 4:14 PM
[2024-08-19] MEDS: ZINC SULFATE 220 MG CAP PO SCH (17:12)
[2024-08-19] MEDS: CHOLECALCIFEROL 125 MCG (5000 IU) TABLET PO SCH (17:12)
[2024-08-19 18:04] LABS: Influenza A Not Detected (Not Detectd); Influenza B Not Detected (Not Detectd); RSV Not Detected (Not Detectd)
[2024-08-19] MEDS: AMOXICILLIN 500 MG CAP PO SCH (21:29)
[2024-08-19] MEDS: ASCORBIC ACID 500 MG TAB PO SCH (21:29)
[2024-08-19] MEDS: ATORVASTATIN 80 MG TAB PO SCH (21:30)
--- NOTE | 2024-08-20 01:22 | PN ---
PROGRESS NOTE DATE OF SERVICE: 08/19/2024 SUBJECTIVE: This is a 58-year-old male, who was admitted with unstable angina, had cardiac cath and stenting of the mid LAD. There is no history of any fever, rigors, or chills at this time. PHYSICAL EXAMINATION: VITAL SIGNS: Pulse is 80, blood pressure 153/91, respirations 20. CHEST: Clear to auscultation. CARDIOVASCULAR: S1, S2. ABDOMEN: Soft. NERVOUS SYSTEM: Nonfocal. LABORATORY DATA: Potassium 3.4. ASSESSMENT: 1. Chest pain with unstable angina, status post cardiac catheterization and stenting of the mid LAD. 2. Hypertension. 3. Hyperlipidemia. RECOMMENDATIONS: Recommended to continue with current management, continue with symptomatic treatment, repeat labs. Continue the dual antiplatelet treatment. Follow up closely with Cardiology. Further recommendations to follow. MMODL / IJN: [id number] /
[2024-08-20 06:33] LABS: African American GFR (CKD) >90 (>60 ml/min/1.73 sqM); Anion Gap 6 mmol/L; Blood Urea Nitrogen 17 mg/dL (9-20); Calcium 8.8 mg/dL (8.4-10.2); Carbon Dioxide 27 mmol/L (22-30); Chloride 105 mmol/L (98-107); Glucose 87 mg/dL (74-99); Non-African American GFR(CKD) >90 (>60 ml/min/1.73 sqM); Potassium 4.2 mmol/L (3.5-5.1); Sodium 138 mmol/L (137-145)
[2024-08-20 08:04] VITALS: RESP 16
[2024-08-20] MEDS: CLOPIDOGREL 75 MG TAB PO SCH (08:18)
[2024-08-20 08:23] LABS: Basophils # (A) 0.04 X 10*3/uL (0.00-0.10); Basophils % (A) 0.5 %; Eosinophils # (A) 0.26 X 10*3/uL (0.04-0.35); Eosinophils % (A) 3.5 %; HCT 44.3 % (39.6-50.0); HGB 14.7 g/dL (13.0-17.0); Lymphocytes # (A) 1.61 X 10*3/uL (0.90-5.00); Lymphocytes % (A) 21.4 %; MCH 30.1 pg (27.0-32.0); MCHC 33.2 g/dL (32.0-37.0); MCV 90.8 FL (80.0-97.0); Mean Platelet Volume 9.5 FL (9.5-12.2); Monocytes # (A) 0.75 X 10*3/uL (0.20-1.00); NRBC Per 100 WBC 0 X 10*3/uL (0.00-0.01); Neutrophils # (A) 4.85 X 10*3/uL (1.80-7.70); Neutrophils % (A) 64.3 %; Platelet Count 214 X 10*3/uL (140-440); RBC 4.88 X 10*6/uL (4.40-5.60); RDW 12.4 % (11.5-14.5); WBC 7.53 X 10*3/uL (4.50-10.00)
[2024-08-20 12:26] VITALS: BMI 29.5
--- NOTE | 2024-08-20 13:39 | P.PN ---
Subjective Progress Note Date: 08/20/24 HISTORY OF PRESENTING ILLNESS: 58-year-old male with past medical history of hypertension dyslipidemia tra nsferred from outside facility because of chest pressure and back pain. Patient reports his primary complaint is back pain which would come and go and some associated tightness in the left arm. Feels like torn cord around his left arm and also someone grabbing around his neck. He has not had any prior cardiac problems that he reports of. On admission troponin x 3 were negative, LDL 122, TG 152, TSH 1.2, A1c 5.6, NT- proBNP 165. BP 144/96, heart rate 75 bpm Admission EKG shows sinus tachycardia with diffuse ST depressions of 1 to 2 mm in inferolateral leads At the time of evaluation it was felt appropriate to offer patient treadmill based stress test however patient received a beta-svetlana therefore the stress of could not be done yesterday and was scheduled for tomorrow. Later in the day patient had similar type of tightness in the neck, left and right arm and back pain with dynamic EKG changes showing mild ST depressions and T wave inversions in his lateral leads. Due to this we made a decision of proceeding with heart catheterization scheduling a stress test. Procedural steps of cardiac catheterization, indication, and potential complications were explained to the patient. I explained to her potential risk of stroke, DC, vascular injury, to the patient. Patient would like to proceed with heart catheterization procedure understanding these potential complications. 08/20 Yesterday, patient underwent cardiac catheterization which revealed 80% mid LAD stenosis, 50% ostial OM1 disease. Subsequently, patient underwent successful stenting of the mid LAD by Dr. Diamond. Patient denies any chest pain, chest pressure, shortness of breath, lightheadedness or dizziness. Blood pressure 129/79, heart rate 67, pulse ox 97% on room air. Repeat blood work reveals hemoglobin 14.7, potassium 4.2, BUN 17 creatinine 0.82. Patient did test positive for COVID-19 last night. PHYSICAL EXAMINATION: Neck: Brisk carotid upstroke, no jugular venous distention. Lungs: Clear to auscultation. Heart: Regular rate and rhythm, S1-S2, , no murmur or rub. Abdomen: Soft nontender, positive bowel sounds. Extremities: No edema, intact distal pulses. Neuro: Alert, oritented, no focal deficits. Detailed neuro exam was not performed. ASSESSMENT: # Unstable angina # Essential hypertension # Dyslipidemia COVID-19 infection PLAN: Continue patient on Aspirin 81 mg, Lipitor 80 mg, amlodipine 5 mg, lisinopril 40 mg, Nitrostat, Metoprolol 25 mg twice daily Continue patient on Plavix 75 mg daily Prescriptions for his new cardiac medications have been sent to his pharmacy Patient is cleared for discharge and will follow-up with Dr. Kruger in 1 week. Nurse practitioner note has been reviewed, I agree with documented findings and plan of care. Patient was seen and examined. Objective - Vital Signs Vital signs: Vital Signs Temp 97.8 F 08/20/24 08:00 Pulse 67 08/20/24 08:00 Resp 16 08/20/24 08:00 BP 129/79 08/20/24 08:00 Pulse Ox 97 08/20/24 08:00 FiO2 Intake & Output 08/19/24 08/20/24 08/20/24 18:59 06:59 18:59 Intake Total 690 Balance 690 Weight 90.718 kg Intake: IV 450 Oral 240 Other: # Voids 2 2 - Labs CBC & Chem 7: 08/20/24 05:33 08/20/24 05:33 Labs: Abnormal Lab Results - Last 24 Hours (Table) 08/19/24 Range/Units 16:22 SARS-CoV-2 (PCR) Detected A (Not Detectd)
[2024-08-20 14:51] VITALS: BP 174/76; PULSE 62; TEMP 98
--- NOTE | 2024-08-22 10:29 | P.DS ---
Providers Date of admission: 08/17/24 23:33 Expected date of discharge: 08/20/24 Attending physician: Maycol [facility] Consults: 08/17/24 23:29 Consult Physician Urgent Consulting Provider: Jorge Richard Consult Reason/Comments: ACS Do you want consulting provider notified?: Yes 08/19/24 09:00 Consult Physician Routine Consulting Provider: [facility] Consult Reason/Comments: Post Interventional Patient Do you want consulting provider notified?: Already Contacted Primary care physician: Litzy Navarro Hospital Course: Final diagnosis Chest pain, status postcardiac catheterization with stenting to the mid LAD Negative D-dimer At 0.35 Hypertension Hyperlipidemia GI prophylaxis DVT prophylaxis Full code Discharge disposition Patient is being discharged in a stable condition with guarded prognosis to home. Patient will follow-up with Dr. Mendoza in the outpatient setting upon discharge. Patient is to continue with current medications and recommend outpa tient follow-up with cardiology as scheduled. Total time taken is greater than 35 minutes. Hospital course This is a 58-year-old male who was recently admitted with chest pain evaluated by cardiology underwent cardiac catheterization noted to have a significant lesion of the LAD and is status post PCI stenting to the mid LAD with Dr. Diamond. Patient evaluated and monitored overnight with no acute issues and has been cleared for discharge home per cardiology. Recommend outpatient follow-up with cardiology as well as primary care provider on discharge. Please refer to cardiology consultation notes for further HPI. Currently no reports of chest pain, shortness of breath, or palpitations. Patient is afebrile. No reports of nausea or vomiting and patient is tolerating diet. Patient reports to feeling well and would like to go home. Patient will be discharged home. Guarded prognosis. Physical exam: Gen: This is a 58-year-old male who is awake, alert and oriented x 3, well-developed, well-nourished HEENT: Head is atraumatic, normocephalic. Pupils equal, round. Sclerae is anicteric. NECK: Supple. No JVD. No lymphadenopathy. No thyromegaly. LUNGS: Diminished breath sounds bilaterally otherwise clear to auscultation. No wheezes or rhonchi. No intercostal retractions. HEART: S1, S2 are muffled ABDOMEN: Soft. Bowel sounds are present. No masses. No tenderness. EXTREMITIES: No pedal edema. No calf tenderness. NEUROLOGICAL: Patient is awake, alert and oriented x3. Cranial nerves 2 through 12 are grossly intact. Please refer to medication reconciliation sheet for a list of medications. The impression and plan of care has been dictated by Arely Harris, Nurse Practitioner as directed. Dr. Maciel MD I have performed a history and examination and MDM of this patient, discussed the same with the dictator, and agree with the dictator's assessment and plan as written ,documented as a scribe. Based on total visit time, I have performed more than 50% of the visit. Patient Condition at Discharge: Fair Plan - Discharge Summary Discharge Rx Participant: No New Discharge Prescriptions: New Aspirin 81 mg PO DAILY tab Atorvastatin [Lipitor] 80 mg PO HS #90 tab Nitroglycerin Sl Tabs [Nitrostat] 0.4 mg SUBLINGUAL Q5M PRN #25 tab PRN Reason: Chest Pain amLODIPine [Norvasc] 5 mg PO DAILY #30 tab Zinc Sulfate [Orazinc] 220 mg PO DAILY #14 cap Cholecalciferol [Vitamin D3 (125 Mcg = 5000 Iu)] 125 mcg PO DAILY #30 tab Metoprolol Tartrate [Lopressor] 25 mg PO BID #180 tab Clopidogrel [Plavix] 75 mg PO DAILY #90 tab Albuterol Inhaler [Ventolin Hfa Inhaler] 2 puff INHALATION Q6H PRN #1 each PRN Reason: Cough Ascorbic Acid [Vitamin C] 500 mg PO BID #60 tab Budesonide-Formot 160-4.5 Mcg [Symbicort 160-4.5 Mcg Inhaler] 2 puff INHALATION BID #10.2 gm Continue lisinopriL [Zestril] 40 mg PO DAILY Amoxicillin 500 mg PO BID Discontinued Metoprolol Succinate (ER) [Toprol Xl] 25 mg PO DAILY Discharge Medication List Amoxicillin 500 mg PO BID 08/18/24 [History] lisinopriL [Zestril] 40 mg PO DAILY 08/18/24 [History] Albuterol Inhaler [Ventolin Hfa Inhaler] 2 puff INHALATION Q6H PRN #1 each 08/20/24 [Rx] Ascorbic Acid [Vitamin C] 500 mg PO BID #60 tab 08/20/24 [Rx] Aspirin 81 mg PO DAILY tab 08/20/24 [Rx] Atorvastatin [Lipitor] 80 mg PO HS #90 tab 08/20/24 [Rx] Budesonide-Formot 160-4.5 Mcg [Symbicort 160-4.5 Mcg Inhaler] 2 puff INHALATION BID #10.2 gm 08/20/24 [Rx] Cholecalciferol [Vitamin D3 (125 Mcg = 5000 Iu)] 125 mcg PO DAILY #30 tab 08/20/24 [Rx] Clopidogrel [Plavix] 75 mg PO DAILY #90 tab 08/20/24 [Rx] Metoprolol Tartrate [Lopressor] 25 mg PO BID #180 tab 08/20/24 [Rx] Nitroglycerin Sl Tabs [Nitrostat] 0.4 mg SUBLINGUAL Q5M PRN #25 tab 08/20/24 [Rx] Zinc Sulfate [Orazinc] 220 mg PO DAILY #14 cap 08/20/24 [Rx] amLODIPine [Norvasc] 5 mg PO DAILY #30 tab 08/20/24 [Rx] Follow up Appointment(s)/Referral(s): Osmar Kruger MD [Medical Doctor] - 1 Week (Office will call with appointment date and time.) Litzy Navarro DO [Primary Care Provider] - 1-2 days Patient Instructions/Handouts: How to Stop Smoking (ED), How to Use an Incentive Spirometer (DC), Cigarette Smoking and Your Health (GEN), Heart Catheterization (DC), Heart Catheterization (GEN) Activity/Diet/Wound Care/Special Instructions: NO FLEXING AT THE WRIST OR LIFTING ANYTHING HEAVIER THAN 5 POUNDS FOR 5 DAYS REMOVE ANY DRESSING OVER PUNCTURE SITE IN 24 HOURS AND LEAVE OPEN TO AIR DO NOT SUBMERGE WRIST IN WATER FOR 3 DAYS. NO BATHS, SWIMMING POOLS, HOT TUBS OR SUBMERGING IN DISH WATER IF SITE BLEEDS, HOLD PRESSURE FOR 10 MIN, IF IT DOESN'T SUBSIDE CALL EMS OR HAVE SOMEONE DRIVE YOU TO ER RETUN TO ER FOR PROBLEMS WITH R EXTREMITY...IE COOL, PALE, NUMBNESS OR TINGLING. Discharge Disposition: HOME SELF-CARE
== END 2024-08-20 15:43 | disposition home or self-care (01) | DRG 321 ==
LOC: EC 22:21 → 3SCARD 23:33 → 6NMEDSUR 08-19 10:13
PROVIDERS: ADMIT Hospitalist; ATTEND Hospitalist
PROC: 4A023N7 Measurement of Cardiac Sampling and Pressure, Left Heart, Percutaneous Approach (ICD-10-PCS; 2024-08-18)
PROC: B2111ZZ Fluoroscopy of Multiple Coronary Arteries using Low Osmolar Contrast (ICD-10-PCS; 2024-08-18)
PROC: B240ZZ3 Ultrasonography of Single Coronary Artery, Intravascular (ICD-10-PCS; principal; 2024-08-19 12:15)
PROC: 027034Z Dilation of Coronary Artery, One Artery with Drug-eluting Intraluminal Device, Percutaneous Approach (ICD-10-PCS; principal; 2024-08-19 12:15)
DX: I25.110 Atherosclerotic heart disease of native coronary artery with unstable angina pectoris (principal); U07.1 COVID-19; I10 Essential (primary) hypertension; E78.5 Hyperlipidemia, unspecified; Z79.899 Other long term (current) drug therapy; Z86.14 Personal history of Methicillin resistant Staphylococcus aureus infection
CPT/HCPCS: 36415; 70450; 71045; 71275; 80048; 80053; 80061; 83036; 83690; 83735; 83880; 84443; 84484; 85025; 85049; 85379; 85610; 85730; 87636; 92978; 93005; 93306; 93458; 96361; 96365; 96366; 96375; 99291

== ENCOUNTER 2024-09-01 06:09 | Observation (INO) | payer OTHER ==
--- NOTE | 2024-09-01 06:35 | ED ---
General Adult HPI - General Chief complaint: Back Pain/Injury Stated complaint: Back/Chest Pain Time Seen by Provider: 09/01/24 06:10 Source: patient, RN notes reviewed Mode of arrival: ambulatory Limitations: no limitations - History of Present Illness Initial comments: 58-year-old male presents emergency department chief complaint of upper back pain. Patient states that he was here 2 weeks ago and had a heart attack and had 1 stent placed. He states his pain similar to what he had before. He states he does have some shortness of breath since his heart attack. Patient does have a history of hypertension states his blood pressure was extremely high last night took his meds this morning started having symptoms again his blood pressure is up. Patient denies any history of hyperlipidemia. Patient denies fevers or chills. Denies abdominal pain does complain of indigestion which is unusual for patient. - Related Data Home Medications Medication Instructions Recorded Confirmed Amoxicillin 500 mg PO BID 08/18/24 08/18/24 lisinopriL [Zestril] 40 mg PO DAILY 08/18/24 08/18/24 Previous Rx's Medication Instructions Recorded Albuterol Inhaler [Ventolin Hfa 2 puff INHALATION Q6H PRN #1 each 08/20/24 Inhaler] Ascorbic Acid [Vitamin C] 500 mg PO BID #60 tab 08/20/24 Aspirin 81 mg PO DAILY tab 08/20/24 Atorvastatin [Lipitor] 80 mg PO HS #90 tab 08/20/24 Budesonide-Formot 160-4.5 Mcg 2 puff INHALATION BID #10.2 gm 08/20/24 [Symbicort 160-4.5 Mcg Inhaler] Cholecalciferol [Vitamin D3 (125 125 mcg PO DAILY #30 tab 08/20/24 Mcg = 5000 Iu)] Clopidogrel [Plavix] 75 mg PO DAILY #90 tab 08/20/24 Metoprolol Tartrate [Lopressor] 25 mg PO BID #180 tab 08/20/24 Nitroglycerin Sl Tabs [Nitrostat] 0.4 mg SUBLINGUAL Q5M PRN #25 tab 08/20/24 Zinc Sulfate [Orazinc] 220 mg PO DAILY #14 cap 08/20/24 amLODIPine [Norvasc] 5 mg PO DAILY #30 tab 08/20/24 Allergies Allergy/AdvReac Type Severity Reaction Status Date / Time No Known Allergies Allergy Verified 09/01/24 06:13 Review of Systems ROS Statement: Those systems with pertinent positive or pertinent negative responses have been documented in the HPI. ROS Other: All systems not noted in ROS Statement are negative. Past Medical History Past Medical History: Hyperlipidemia, Hypertension, Myocardial Infarction ([place]) History of Any Multi-Drug Resistant Organisms: MRSA Date of last positivie culture/infection: 2009 MDRO Source:: head Past Surgical History: Appendectomy, Heart Catheterization With Stent, Orthopedic Surgery Additional Past Surgical History / Comment(s): heart sx, 1 stent Past Psychological History: No Psychological Hx Reported Smoking Status: Never smoker Past Alcohol Use History: None Reported Past Drug Use History: None Reported General Exam Limitations: no limitations General appearance: alert, in no apparent distress Head exam: Present: atraumatic, normocephalic, normal inspection Eye exam: Present: normal appearance, PERRL, EOMI. Absent: scleral icterus, conjunctival injection, periorbital swelling ENT exam: Present: normal exam, normal oropharynx, mucous membranes moist Neck exam: Present: normal inspection, full ROM. Absent: tenderness, meningismus, lymphadenopathy Respiratory exam: Present: normal lung sounds bilaterally. Absent: respiratory distress, wheezes, rales, rhonchi, stridor Cardiovascular Exam: Present: regular rate, normal rhythm, normal heart sounds. Absent: systolic murmur, diastolic murmur, rubs, gallop, clicks GI/Abdominal exam: Present: soft, normal bowel sounds. Absent: distended, tenderness, guarding, rebound, rigid Neurological exam: Present: alert, oriented X3 Skin exam: Present: warm, dry, intact, normal color. Absent: rash Course Vital Signs 09/01/24 09/01/24 06:13 07:23 Temperature 97.5 F L Pulse Rate 83 74 Respiratory 18 18 Rate Blood Pressure 164/112 145/99 O2 Sat by Pulse 99 98 Oximetry EKG Findings - EKG Comments: EKG Findings:: EKG performed at 6: 24 sinus rhythm with a rate of 83 OK 170 QRS 110 QT/QTc 362/402 inverted T wave, no significant depression or elevation noted. - EKG Results: EKG: interpreted by [facility] Medical Decision Making - Medical Decision Making Was pt. sent in by a medical professional or institution (, PA, PUBLIC SPEAKING TEACHER, urgent care, hospital, or retirement...) When possible be specific @ -No Did you speak to anyone other than the patient for history (EMS, parent, family, police, friend...)? What history was obtained from this source @ -No Did you review nursing and triage notes (agree or disagree)? Why? @ -I reviewed and agree with nursing and triage notes Were old charts reviewed (outside hosp., previous admission, EMS record, old EKG, old radiological studies, urgent care reports/EKG's, retirement records)? Report findings @ -[Reviewed inpatient records including cardiac cath, stent placement Differential Diagnosis (chest pain, altered mental status, abdominal pain women, abdominal pain men, vaginal bleeding, weakness, fever, dyspnea, syncope, headache, dizziness, GI bleed, back pain, seizure, CVA, palpatations, mental health, musculoskeletal)? @ -Differential Chest Pain: Stable Angina, Unstable Angina, STEMI, NSTEMI Aortic Dissection, Pneumothorax, Musculoskeletal, Esophageal Spasm GERD, Cholecystitis, Pancreatitis, Zoster, this is not meant to be an all-inclusive list. EKG interpreted by me (3pts min.). @ -As above X-rays interpreted by me (1pt min.). @ -Chest x-ray shows no acute cardiopulmonary process. CT interpreted by me (1pt min.). @ -None done U/S interpreted by me (1pt. min.). @ -None done What testing was considered but not performed or refused? (CT, X-rays, U/S, labs)? Why? @ -None What meds were considered but not given or refused? Why? @ -None Did you discuss the management of the patient with other professionals (professionals i.e. , PA, PUBLIC SPEAKING TEACHER, lab, RT, psych nurse, neonatal social worker, rubber tire curer, teacher, custom protection officer, case operator)? Give summary @ -[EM for admission Was smoking cessation discussed for >3mins.? @ -No Was critical care preformed (if so, how long)? @ -No Were there social determinants of health that impacted care today? How? (Homeles sness, low income, unemployed, alcoholism, drug addiction, transportation, low edu. Level, literacy, decrease access to med. care, assisted, rehab)? @ -No Was there de-escalation of care discussed even if they declined (Discuss DNR or withdrawal of care, Hospice)? DNR status @ -No What co-morbidities impacted this encounter? (DM, HTN, Smoking, COPD, CAD, Cancer, CVA, ARF, Chemo, Hep., AIDS, mental health diagnosis, sleep apnea, morbid obesity)? @ -CAD hypertension Was patient admitted / discharged? Hospital course, mention meds given and route, prescriptions, significant lab abnormalities, going to OR and other pertinent info. @ -Admitted patient presented for back pain similar to previous complaints in which stent was placed. Patient has been having elevated blood pressure uncontrolled current medications. Patient be admitted for cardiac rule out. Undiagnosed new problem with uncertain prognosis? @ -No Drug Therapy requiring intensive monitoring for toxicity (Heparin, Nitro, Insulin, Cardizem)? @ -No Were any procedures done? @ -No Diagnosis/symptom? @ -Anginal equivalent, hypertension Acute, or Chronic, or Acute on Chronic? @ -Acute Uncomplicated (without systemic symptoms) or Complicated (systemic symptoms)? @ -Complicated Side effects of treatment? @ -No Exacerbation, Progression, or Severe Exacerbation? @ -No Poses a threat to life or bodily function? How? (Chest pain, [place], SC, pneumonia, PE, COPD, DKA, ARF, appy, cholecystitis, CVA, Diverticulitis, Homicidal, Suicidal, threat to staff... and all critical care pts) @ -Yes threat to cardiac function - Lab Data Result diagrams: 09/01/24 06:56 09/01/24 06:56 Lab Results 09/01/24 09/01/24 09/01/24 Range/Units 06:56 06:56 06:56 WBC 6.97 (4.50-10.00) 10*3/uL RBC 4.93 (4.40-5.60) 10*6/uL Hgb 15.1 (13.0-17.0) g/dL Hct 43.3 (39.6-50.0) % MCV 87.8 (80.0-97.0) fL MCH 30.6 (27.0-32.0) pg MCHC 34.9 (32.0-37.0) g/dL Plt Count 232 (140-440) 10*3/uL MPV 10.0 (9.5-12.2) fL Immature Gran % (Auto) 1.0 % Neutrophils % 65.5 % Lymphocytes % 21.8 % Monocytes % 9.3 % Eosinophils % 2.0 % Basophils % 0.4 % Immature Gran # 0.07 H (0.00-0.04) 10*3/uL Neutrophils # 4.56 (1.80-7.70) 10*3/uL Lymphocytes # 1.52 (0.90-5.00) 10*3/uL Monocytes # 0.65 (0.20-1.00) 10*3/uL Eosinophils # 0.14 (0.04-0.35) 10*3/uL Basophils # 0.03 (0.00-0.10) 10*3/uL PT 10.3 (10.0-12.5) sec INR 0.9 (<1.2) APTT 25.1 (22.0-30.0) sec D-Dimer 0.22 (<0.60) mg/L FEU Sodium 138 (137-145) mmol/L Potassium 3.8 (3.5-5.1) mmol/L Chloride 106 (98-107) mmol/L Carbon Dioxide 24 (22-30) mmol/L Anion Gap 8 mmol/L BUN 17 (9-20) mg/dL Creatinine 0.92 (0.66-1.25) mg/dL Est GFR (CKD-EPI)AfAm >90 (>60 ml/min/1.73 sqM) Est GFR (CKD-EPI)NonAf >90 (>60 ml/min/1.73 sqM) Glucose 96 (74-99) mg/dL Calcium 9.0 (8.4-10.2) mg/dL Magnesium 2.2 (1.6-2.3) mg/dL Total Bilirubin 0.5 (0.2-1.3) mg/dL AST 28 (17-59) U/L ALT 43 (4-49) U/L Alkaline Phosphatase 120 (38-126) U/L Troponin I (0.000-0.034) ng/mL NT-Pro-B Natriuret Pep 135 pg/mL Total Protein 7.0 (6.3-8.2) g/dL Albumin 4.2 (3.5-5.0) g/dL 09/01/24 Range/Units 06:56 WBC (4.50-10.00) 10*3/uL RBC (4.40-5.60) 10*6/uL Hgb (13.0-17.0) g/dL Hct (39.6-50.0) % MCV (80.0-97.0) fL MCH (27.0-32.0) pg MCHC (32.0-37.0) g/dL Plt Count (140-440) 10*3/uL MPV (9.5-12.2) fL Immature Gran % (Auto) % Neutrophils % % Lymphocytes % % Monocytes % % Eosinophils % % Basophils % % Immature Gran # (0.00-0.04) 10*3/uL Neutrophils # (1.80-7.70) 10*3/uL Lymphocytes # (0.90-5.00) 10*3/uL Monocytes # (0.20-1.00) 10*3/uL Eosinophils # (0.04-0.35) 10*3/uL Basophils # (0.00-0.10) 10*3/uL PT (10.0-12.5) sec INR (<1.2) APTT (22.0-30.0) sec D-Dimer (<0.60) mg/L FEU Sodium (137-145) mmol/L Potassium (3.5-5.1) mmol/L Chloride (98-107) mmol/L Carbon Dioxide (22-30) mmol/L Anion Gap mmol/L BUN (9-20) mg/dL Creatinine (0.66-1.25) mg/dL Est GFR (CKD-EPI)AfAm (>60 ml/min/1.73 sqM) Est GFR (CKD-EPI)NonAf (>60 ml/min/1.73 sqM) Glucose (74-99) mg/dL Calcium (8.4-10.2) mg/dL Magnesium (1.6-2.3) mg/dL Total Bilirubin (0.2-1.3) mg/dL AST (17-59) U/L ALT (4-49) U/L Alkaline Phosphatase (38-126) U/L Troponin I <0.012 (0.000-0.034) ng/mL NT-Pro-B Natriuret Pep pg/mL Total Protein (6.3-8.2) g/dL Albumin (3.5-5.0) g/dL Disposition Clinical Impression: Anginal equivalent, Atypical chest pain, Hypertension Disposition: ADMITTED IP TO THIS HOSP Condition: Fair Referrals: Litzy Navarro DO [Primary Care Provider] - 1-2 days Time of Disposition: 08:29
[2024-09-01] MEDS: ASPIRIN 81 MG PO STA (06:50)
[2024-09-01] MEDS: ONDANSETRON 4 MG/2 ML VIAL IVP STA (06:53)
[2024-09-01] MEDS: MORPHINE SULFATE 4 MG/ML SYRINGE IV STA (06:56)
[2024-09-01 07:16] LABS: Basophils # (A) 0.03 10*3/uL (0.00-0.10); Basophils % (A) 0.4 %; Eosinophils # (A) 0.14 10*3/uL (0.04-0.35); HCT 43.3 % (39.6-50.0); HGB 15.1 g/dL (13.0-17.0); Lymphocytes # (A) 1.52 10*3/uL (0.90-5.00); Lymphocytes % (A) 21.8 %; MCH 30.6 pg (27.0-32.0); MCHC 34.9 g/dL (32.0-37.0); MCV 87.8 fL (80.0-97.0); Monocytes # (A) 0.65 10*3/uL (0.20-1.00); Monocytes % (A) 9.3 %; Neutrophils # (A) 4.56 10*3/uL (1.80-7.70); Neutrophils % (A) 65.5 %; Platelet Count 232 10*3/uL (140-440); RBC 4.93 10*6/uL (4.40-5.60); WBC 6.97 10*3/uL (4.50-10.00)
--- NOTE | 2024-09-01 07:29 | XR ---
EXAMINATION TYPE: XR chest 2V DATE OF EXAM: 09/01/2024 7:19 AM COMPARISON: 08/19/2024 CLINICAL INDICATION: Male, 58 years old with history of Chest Pain, , TECHNIQUE: Frontal and lateral views FINDINGS: The cardiomediastinal silhouette, aorta, and pulmonary vasculature are within normal limits. There is some strandy atelectasis at the right lower lung. Otherwise, lungs and pleural spaces are clear. IMPRESSION: No acute cardiopulmonary process. [facility], Workstation: [email or web address], 09/01/2024 7:27 AM
[2024-09-01 07:32] LABS: INR 0.9 (<1.2); Partial Thromboplastin Time 25.1 sec (22.0-30.0); Prothrombin Time 10.3 sec (10.0-12.5)
[2024-09-01 07:38] LABS: ALT 43 U/L (4-49); AST 28 U/L (17-59); African American GFR (CKD) >90 (>60 ml/min/1.73 sqM); Albumin 4.2 g/dL (3.5-5.0); Alkaline Phosphatase 120 U/L (38-126); Anion Gap 8 mmol/L; Blood Urea Nitrogen 17 mg/dL (9-20); Carbon Dioxide 24 mmol/L (22-30); Chloride 106 mmol/L (98-107); Glucose 96 mg/dL (74-99); Magnesium 2.2 mg/dL (1.6-2.3); Non-African American GFR(CKD) >90 (>60 ml/min/1.73 sqM); Potassium 3.8 mmol/L (3.5-5.1); Sodium 138 mmol/L (137-145); Total Bilirubin 0.5 mg/dL (0.2-1.3)
[2024-09-01 07:46] LABS: NT-Pro-B-Type Natriuretic Pept 135 pg/mL
[2024-09-01] MEDS ORDERED: NITROGLYCERIN SL TABS 0.4 MG TAB SUBLINGUAL PRN (08:33)
[2024-09-01 09:09] VITALS: BP 137/88; PULSE 58; RESP 16; TEMP 98.2
[2024-09-01] MEDS: METHYL SALICYLATE-MENTHOL OINT (3 OZ TUBE) TOPICAL SCH (09:39)
[2024-09-01] MEDS ORDERED: ALBUTEROL NEBULIZED 2.5 MG/3 ML INHALATION PRN (10:06)
[2024-09-01] MEDS: CLOPIDOGREL 75 MG TAB PO SCH (10:53)
[2024-09-01] MEDS: lisinopriL 20 MG TAB PO SCH (10:53)
[2024-09-01] MEDS: METOPROLOL SUCCINATE (ER) 25 MG TAB.ER.24H PO SCH (10:53)
[2024-09-01] MEDS: amLODIPine 5 MG TAB PO SCH (10:53)
--- NOTE | 2024-09-01 14:57 | P.CRDCN ---
History of Present Illness Consult date: 09/01/24 History of present illness: HPI: The patient is a 58-year-old male with a history of hypertension and dyslipidemia. He was initially admitted on 12/2024 with substantial chest pressure and back pain. He was referred from an outside facility to [facility] due to concerns about an abnormal EKG, which showed diffuse ST depressions of 1 to 2 mm in inferolateral leads. Troponins were negative, HbA1c was 5.6, BNP was 165, and LDL was 122, triglycerides were 152. A cardiac catheterization revealed 80% mid-LAD stenosis and 50% first OM osteal disease. He underwent PCI with a 3.5 mm by 33 mm stent performed by Dr. Diamond. He was discharged on Aspirin, Plavix, Lipitor, Amlodipine, Lisinopril, and Metoprolol 25 mg BID. The patient presented again with similar back pain and noted elevated blood pressure in the 190s and facial flushing. Due to concerns of another heart attack, he presented to the ER. Upon admission, his labs showed hemoglobin 15.1, sodium 138, potassium 3.8, BUN 17, creatinine 0.9, and negative troponin times two. The EKG showed evolving ST changes in inferolateral leads. The chest X-ray did not show significant pulmonary congestion or consolidation. An echo from 07/2024 showed an EF of 60%, mild LVH, no regional wall motion abnormality, or valvular dysfunction. Pertinent cardiac Labs: - 07/2024: Troponins negative, HbA1c 5.6, BNP 165, LDL 122, triglycerides 152 - Current admission: Hemoglobin 15.1, sodium 138, potassium 3.8, BUN 17, creatinine 0.9, troponin times two negative Pertinent cardiac testing: - EK12/2024: Diffuse ST depressions of 1 to 2 mm in inferolateral leads - Cardiac catheterization: 12/2024: 80% mid-LAD stenosis, 50% first OM osteal disease - Echo: 08/2024: EF 60%, mild LVH, no regional wall motion abnormality or valvular dysfunction REVIEW OF SYSTEMS: 14 point review of system is negative except what is mentioned above in HPI. PHYSICAL EXAMINATION: Neck: Brisk carotid upstroke, no jugular venous distention. Lungs: Clear to auscultation. Heart: Regular rate and rhythm, S1-S2, no murmur or rub. Abdomen: Soft, non-tender, positive bowel sounds. Extremities: No edema, intact distal pulses. Neuro: Alert, oriented, no focal deficits. Detailed neuro exam was not performed. 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 Reduce dose of beta-svetlana from last time because of low resting heart rate in 50s. # Recommend outpatient follow-up with cardiology At this time he is chest pain-free, blood pressure is controlled. Patient is cleared to be discharged from cardiovascular standpoint Past Medical History Past Medical History: Hyperlipidemia, Hypertension, Myocardial Infarction ([place]) Last Myocardial Infarction Date:: 08/17/2024 History of Any Multi-Drug Resistant Organisms: MRSA Date of last positivie culture/infection: 2009 MDRO Source:: head Past Surgical History: Appendectomy, Heart Catheterization With Stent, Orthopedic Surgery Additional Past Surgical History / Comment(s): 1 stent Date of Last Stent Placement:: 08/19/2024 Past Psychological History: No Psychological Hx Reported Smoking Status: Never smoker Past Alcohol Use History: None Reported Past Drug Use History: None Reported Medications and Allergies Home Medications Medication Instructions Recorded Confirmed Type lisinopriL [Zestril] 40 mg PO DAILY 08/18/24 09/01/24 History Ascorbic Acid [Vitamin C] 500 mg PO BID #60 tab 08/20/24 09/01/24 Rx Aspirin 81 mg PO DAILY tab 08/20/24 09/01/24 Rx Atorvastatin [Lipitor] 80 mg PO HS #90 tab 08/20/24 09/01/24 Rx Cholecalciferol [Vitamin D3 (125 125 mcg PO DAILY #30 tab 08/20/24 09/01/24 Rx Mcg = 5000 Iu)] Clopidogrel [Plavix] 75 mg PO DAILY #90 tab 08/20/24 09/01/24 Rx Nitroglycerin Sl Tabs [Nitrostat] 0.4 mg SUBLINGUAL Q5M PRN #25 tab 08/20/24 09/01/24 Rx Zinc Sulfate [Orazinc] 220 mg PO DAILY #14 cap 08/20/24 09/01/24 Rx amLODIPine [Norvasc] 5 mg PO DAILY #30 tab 08/20/24 09/01/24 Rx Albuterol Inhaler [Ventolin Hfa 2 puff INHALATION RT-Q6H PRN 09/01/24 09/01/24 History Inhaler] Budesonide-Formot 160-4.5 Mcg 2 puff INHALATION RT-BID 09/01/24 09/01/24 History [Symbicort 160-4.5 Mcg Inhaler] Metoprolol Succinate (ER) [Toprol 25 mg PO DAILY 09/01/24 09/01/24 History XL] Allergies Allergy/AdvReac Type Severity Reaction Status Date / Time No Known Allergies Allergy Verified 09/01/24 09:39 Physical Exam Vitals: Vital Signs Temp Pulse Resp BP Pulse Ox 09/01/24 09:08 98.2 F 58 L 16 137/88 97 09/01/24 07:23 74 18 145/99 98 09/01/24 06:13 97.5 F L 83 18 164/112 99 Intake and Output 08/31/24 09/01/24 09/01/24 22:59 06:59 14:59 Other: Weight 90.718 kg Results 09/01/24 06:56 09/01/24 06:56 Cardiac Enzymes 09/01/24 09/01/24 09/01/24 Range/Units 06:56 06:56 09:50 AST 28 (17-59) U/L Troponin I <0.012 <0.012 (0.000-0.034) ng/mL Coagulation 09/01/24 Range/Units 06:56 PT 10.3 (10.0-12.5) sec APTT 25.1 (22.0-30.0) sec CBC 09/01/24 Range/Units 06:56 WBC 6.97 (4.50-10.00) 10*3/uL RBC 4.93 (4.40-5.60) 10*6/uL Hgb 15.1 (13.0-17.0) g/dL Hct 43.3 (39.6-50.0) % Plt Count 232 (140-440) 10*3/uL Comprehensive Metabolic Panel 09/01/24 Range/Units 06:56 Sodium 138 (137-145) mmol/L Potassium 3.8 (3.5-5.1) mmol/L Chloride 106 (98-107) mmol/L Carbon Dioxide 24 (22-30) mmol/L BUN 17 (9-20) mg/dL Creatinine 0.92 (0.66-1.25) mg/dL Glucose 96 (74-99) mg/dL Calcium 9.0 (8.4-10.2) mg/dL AST 28 (17-59) U/L ALT 43 (4-49) U/L Alkaline Phosphatase 120 (38-126) U/L Total Protein 7.0 (6.3-8.2) g/dL Albumin 4.2 (3.5-5.0) g/dL Current Medications Generic Name Dose Route Start Last Admin Trade Name Freq PRN Reason Stop Dose Admin Albuterol Sulfate 2.5 mg 09/01/24 10:06 Albuterol Nebulized 2.5 Mg/3 Ml INHALATION RT-Q6H PRN Cough Amlodipine Besylate 5 mg 09/01/24 10:15 09/01/24 10:53 Amlodipine 5 Mg Tab PO Not Given DAILY [facility] Aspirin 325 mg 09/02/24 09:00 Aspirin 325 Mg Tab PO DAILY [facility] Atorvastatin Calcium 80 mg 09/01/24 21:00 Atorvastatin 80 Mg Tab PO HS [facility] Budesonide/Formoterol Fumarate 2 puff 09/01/24 20:00 Symbicort 160-4.5 Mcg Inhaler INHALATION RT-BID [facility] Clopidogrel Bisulfate 75 mg 09/01/24 10:15 09/01/24 10:53 Clopidogrel 75 Mg Tab PO Not Given DAILY [facility] Lisinopril 40 mg 09/01/24 10:15 09/01/24 10:53 Lisinopril 20 Mg Tab PO Not Given DAILY [facility] Methyl Salicylate 1 applic 09/01/24 09:00 09/01/24 09:39 Methyl Salicylate-Menthol Oint (3 Oz Tube) TOPICAL 1 applic TID [facility] Administration Protocol Metoprolol Succinate 25 mg 09/01/24 10:15 09/01/24 10:53 Metoprolol Succinate (Er) 25 Mg Tab.Er.24h PO Not Given DAILY [facility] Nitroglycerin 0.4 mg 09/01/24 08:33 Nitroglycerin Sl Tabs 0.4 Mg Tab SUBLINGUAL Q5M PRN Chest Pain Intake and Output 08/31/24 09/01/24 09/01/24 22:59 06:59 14:59 Other: Weight 90.718 kg 09/01/24 06:56 09/01/24 06:56
--- NOTE | 2024-09-01 19:27 | P.HPIM ---
History of Present Illness H&P Date: 09/01/24 Chief Complaint: Chest pain Patient is a 58-year-old male with a known history of hypertension, hyperlipidemia, recent cardiac catheterization and stent placement to mid LAD on 08/19/2024 presents to ER with complaints of left-sided chest pain and shoulder pain and also between the shoulder blades. Patient states that he felt like flushing in his face and also found to have elevated blood pressure to 190s at home. Patient had this episode last night and again this morning. Presented to ER for further evaluation. Patient was given IV morphine in the ER which seemed to improve his symptoms. Her EKG showed evolving ST changes in the inferior lateral leads. Chest x-ray showed no acute cardiopulmonary process. Laboratory data showed WBC 6.97 hemoglobin 15.1 platelets 232, sodium 138 potassium 3.8 chloride 106 bicarb is 24 BUN 17 and creatinine 0.91 blood sugar 96. Magnesium 2.2 and troponin x 2 negative. Patient refused a third troponin. proBNP 135. Recent echocardiogram showed EF 60%, mild LVH and no regional wall motion abnormalities or valvular dysfunction. Review of Systems Constitutional: Patient denies any fever or chills . No generalized weakness or weight loss. Abdomen: Patient denied nausea vomiting and diarrhea and abdominal pain. Cardiovascular: Patient denies any chest pain or short of breath no palpitations. Respiratory: patient denied any cough or sputum production. No shortness of breath Neurologic: Patient denied any numbness or tingling. no headache. Musculoskeletal: Patient denies any complaints of joint swelling or deformity. Skin: Negative Psychiatric: Negative Endocrine: No heat or cold intolerance. No recent weight gain. Genitourinary: No dysuria or hematuria. All other 14 point ROS negative except the above Past Medical History Past Medical History: Hyperlipidemia, Hypertension, Myocardial Infarction ([place]) History of Any Multi-Drug Resistant Organisms: MRSA Date of last positivie culture/infection: 2009 MDRO Source:: head Past Surgical History: Appendectomy, Heart Catheterization With Stent, Orthopedic Surgery Additional Past Surgical History / Comment(s): heart sx, 1 stent Past Psychological History: No Psychological Hx Reported Smoking Status: Never smoker Past Alcohol Use History: None Reported Past Drug Use History: None Reported Medications and Allergies Home Medications Medication Instructions Recorded Confirmed Type lisinopriL [Zestril] 40 mg PO DAILY 08/18/24 09/01/24 History Ascorbic Acid [Vitamin C] 500 mg PO BID #60 tab 08/20/24 09/01/24 Rx Aspirin 81 mg PO DAILY tab 08/20/24 09/01/24 Rx Atorvastatin [Lipitor] 80 mg PO HS #90 tab 08/20/24 09/01/24 Rx Cholecalciferol [Vitamin D3 (125 125 mcg PO DAILY #30 tab 08/20/24 09/01/24 Rx Mcg = 5000 Iu)] Clopidogrel [Plavix] 75 mg PO DAILY #90 tab 08/20/24 09/01/24 Rx Nitroglycerin Sl Tabs [Nitrostat] 0.4 mg SUBLINGUAL Q5M PRN #25 tab 08/20/24 09/01/24 Rx Zinc Sulfate [Orazinc] 220 mg PO DAILY #14 cap 08/20/24 09/01/24 Rx amLODIPine [Norvasc] 5 mg PO DAILY #30 tab 08/20/24 09/01/24 Rx Albuterol Inhaler [Ventolin Hfa 2 puff INHALATION RT-Q6H PRN 09/01/24 09/01/24 History Inhaler] Budesonide-Formot 160-4.5 Mcg 2 puff INHALATION RT-BID 09/01/24 09/01/24 History [Symbicort 160-4.5 Mcg Inhaler] Metoprolol Succinate (ER) [Toprol 25 mg PO DAILY 09/01/24 09/01/24 History XL] Allergies Allergy/AdvReac Type Severity Reaction Status Date / Time No Known Allergies Allergy Verified 09/01/24 09:39 Physical Exam Vitals: Vital Signs Temp Pulse Resp BP Pulse Ox 09/01/24 09:08 98.2 F 58 L 16 137/88 97 09/01/24 07:23 74 18 145/99 98 09/01/24 06:13 97.5 F L 83 18 164/112 99 Intake and Output 08/31/24 09/01/24 09/01/24 22:59 06:59 14:59 Other: Weight 90.718 kg PHYSICAL EXAMINATION: Patient is lying in the bed comfortably, no acute distress, awake alert and oriented.. HEENT: Normocephalic. Neck is supple. Pupils reactive. Nostrils clear. Oral cavity is moist. Neck reveals no JVD, carotid bruits, or thyromegaly. CHEST EXAMINATION: Trachea is central. Symmetrical expansion. Lung woody clear to auscultation and percussion. CARDIAC: Normal S1, S2 with no gallops. No murmurs ABDOMEN: Soft. Bowel sounds normal. No organomegaly. No abdominal bruits. Extremities: reveal no edema. No clubbing or cyanosis Neurologically awake, alert, oriented x3 with well-coordinated movements. No focal deficits noted Skin: No rash or skin lesions. Psychiatric: Coperative. Nonsuicidal Musculoskeletal: No joint swelling or deformity. Normal range of motion. Results CBC & Chem 7: 09/01/24 06:56 09/01/24 06:56 Labs: Abnormal Lab Results - Last 24 Hours (Table) 09/01/24 Range/Units 06:56 Immature Gran # 0.07 H (0.00-0.04) 10*3/uL Thrombosis Risk Factor Assmnt - DVT/VTE Prophylaxis DVT/VTE Prophylaxis: Pharmacologic Prophylaxis ordered Assessment and Plan Assessment: Atypical chest pain. Rule out ACS. CAD with recent cardiac catheterization and stent placement to mid LAD on 08/19/2024 Uncontrolled hypertension Hyperlipidemia History of cardiac surgery for congenital anomaly several years ago DVT prophylaxis with early ambulation Plan: Patient will be going on telemonitoring. Serial EKG and troponin x 2 negative. Patient was started back on aspirin, Plavix, Lipitor and metoprolol XL 20 mg daily. Metoprolol tartrate dose was not held due to low resting heart rate. Blood pressure is better controlled now. Cardiology is on board. Patient would like to be discharged home today.
[2024-09-01] MEDS ORDERED: SYMBICORT 160-4.5 MCG INHALER INHALATION SCH (20:00)
[2024-09-01] MEDS ORDERED: ATORVASTATIN 80 MG TAB PO SCH (21:00)
[2024-09-02] MEDS ORDERED: ASPIRIN 325 MG TAB PO SCH (09:00)
== END 2024-09-01 17:34 | disposition home or self-care (01) ==
LOC: EC 06:09 → 1SOBS 08:12
PROVIDERS: ADMIT Internal Medicine; ATTEND Internal Medicine
DX: R07.89 Other chest pain (principal); I25.118 Atherosclerotic heart disease of native coronary artery with other forms of angina pectoris; I10 Essential (primary) hypertension; E78.5 Hyperlipidemia, unspecified; Z95.5 Presence of coronary angioplasty implant and graft; Z79.02 Long term (current) use of antithrombotics/antiplatelets; Z79.51 Long term (current) use of inhaled steroids; Z79.82 Long term (current) use of aspirin; Z79.899 Other long term (current) drug therapy
CPT/HCPCS: 96374; 96375; 99285; 36415; 93005; 85379; 83880; 80053; 83735; 84484; 85025; 85610; 85730; 71046; G0378; J2270; J2405

== ENCOUNTER 2024-09-06 15:28 | Observation (INO) | payer OTHER ==
--- NOTE | 2024-09-06 15:59 | ED ---
Chest Pain HPI - General Chief Complaint: Back Pain/Injury Stated Complaint: MAREK, back pain Time Seen by Provider: 09/06/24 15:46 Source: patient, RN notes reviewed, old records reviewed Mode of arrival: ambulatory Limitations: no limitations - History of Present Illness Initial Comments: This is a 59-year-old male to the ER for chest pain back pain. Patient has back pain that felt just like when he had a prior NV needing stent placement. Patient states he always chest pain neuropathic pain arm pain leg pain body aches and pains which he takes Tylenol and Motrin for he did take Tylenol Motrin last night when the pain began but has been persistent throughout the day today. No shortness of breath just feeling fatigue, no blood thinners, patient had stents 3 weeks ago and was here 1 week ago for increased blood pressure with anxiety MD Complaint: chest pain -: hour(s) (20) Onset: during rest Pain Location: substernal Pain Radiation: back Severity: moderate Severity scale (1-10): 6 Quality: aching Consistency: constant Improves With: nothing Worsens With: nothing Anginal Symptoms: sense of impending doom Other Symptoms: palpitations Treatments Prior to Arrival: none - Related Data Home Medications Medication Instructions Recorded Confirmed lisinopriL [Zestril] 40 mg PO DAILY 08/18/24 09/01/24 Albuterol Inhaler [Ventolin Hfa 2 puff INHALATION RT-Q6H PRN 09/01/24 09/01/24 Inhaler] Budesonide-Formot 160-4.5 Mcg 2 puff INHALATION RT-BID 09/01/24 09/01/24 [Symbicort 160-4.5 Mcg Inhaler] Metoprolol Succinate (ER) [Toprol 25 mg PO DAILY 09/01/24 09/01/24 XL] Previous Rx's Medication Instructions Recorded Ascorbic Acid [Vitamin C] 500 mg PO BID #60 tab 08/20/24 Aspirin 81 mg PO DAILY tab 08/20/24 Atorvastatin [Lipitor] 80 mg PO HS #90 tab 08/20/24 Cholecalciferol [Vitamin D3 (125 125 mcg PO DAILY #30 tab 08/20/24 Mcg = 5000 Iu)] Clopidogrel [Plavix] 75 mg PO DAILY #90 tab 08/20/24 Nitroglycerin Sl Tabs [Nitrostat] 0.4 mg SUBLINGUAL Q5M PRN #25 tab 08/20/24 Zinc Sulfate [Orazinc] 220 mg PO DAILY #14 cap 08/20/24 amLODIPine [Norvasc] 5 mg PO DAILY #30 tab 08/20/24 Allergies Allergy/AdvReac Type Severity Reaction Status Date / Time No Known Allergies Allergy Verified 09/06/24 15:35 Review of Systems ROS Statement: Those systems with pertinent positive or pertinent negative responses have been documented in the HPI. ROS Other: All systems not noted in ROS Statement are negative. EKG Findings - EKG Comments: EKG Findings:: EKG is sinus 77 TN 163 QRS 97 QTc 374 - EKG Results: EKG: interpreted by ARI Past Medical History Past Medical History: Hyperlipidemia, Hypertension, Myocardial Infarction ([place]) Last Myocardial Infarction Date:: 08/17/2024 History of Any Multi-Drug Resistant Organisms: MRSA Date of last positivie culture/infection: 2009 MDRO Source:: head Past Surgical History: Appendectomy, Heart Catheterization With Stent, Orthopedic Surgery Additional Past Surgical History / Comment(s): heart sx, 1 stent Date of Last Stent Placement:: 08/19/2024 Past Psychological History: No Psychological Hx Reported Smoking Status: Never smoker Past Alcohol Use History: None Reported Past Drug Use History: None Reported General Exam Limitations: no limitations General appearance: alert, in no apparent distress Head exam: Present: atraumatic, normocephalic, normal inspection Eye exam: Present: normal appearance, PERRL, EOMI. Absent: scleral icterus, conjunctival injection, periorbital swelling ENT exam: Present: normal exam, mucous membranes moist Neck exam: Present: normal inspection. Absent: tenderness, meningismus, lymphadenopathy Respiratory exam: Present: normal lung sounds bilaterally. Absent: respiratory distress, wheezes, rales, rhonchi, stridor Cardiovascular Exam: Present: regular rate, normal rhythm, normal heart sounds. Absent: systolic murmur, diastolic murmur, rubs, gallop, clicks GI/Abdominal exam: Present: soft, normal bowel sounds. Absent: distended, tenderness, guarding, rebound, rigid Extremities exam: Present: normal inspection, full ROM, normal capillary refill. Absent: tenderness, pedal edema, joint swelling, calf tenderness Back exam: Present: normal inspection Neurological exam: Present: alert, oriented X3, CN II-XII intact Psychiatric exam: Present: normal affect, normal mood Skin exam: Present: warm, dry, intact, normal color. Absent: rash Course Vital Signs 09/06/24 15:31 Temperature 97.4 F L Pulse Rate 80 Respiratory 17 Rate Blood Pressure 127/81 O2 Sat by Pulse 98 Oximetry - Reevaluation(s) Reevaluation #1: 09/06/24 16:30 Medical records reviewed Prior medical records reviewed includes inpatient hospitalization with stent placement, EKGs, prior ER visit for hypertension and anxiety Reevaluation #2: 09/06/24 17:42 Persistent symptoms here in the ER though improved Reevaluation #3: 09/06/24 17:42 Patient informed of results questions answered Reevaluation #4: Was pt. sent in by a medical professional or institution (SUNDAY Husain, YARDAGE CONTROL OPERATOR, urgent care, hospital, or shelter...) When possible be specific @ -no Did you speak to anyone other than the patient for history (EMS, parent, family, police, friend...)? What history was obtained from this source @ -no Did you review nursing and triage notes (agree or disagree)? Why? @ -agree Are old charts reviewed (outside hosp., previous admission, EMS record, old EKG, old radiological studies, urgent care reports/EKG's, shelter records)? Report findings @ -yes Differential Diagnosis (chest pain, altered mental status, abdominal pain women, abdominal pain men, vaginal bleeding, weakness, fever, dyspnea, syncope, headache, dizziness, GI bleed, back pain, seizure, CVA, palpatations, mental health, musculoskeletal)? @ -prior EKG interpreted by me (3pts min.). @ -yes X-rays interpreted by me (1pt min.). @ -yes negative for acute disease CT interpreted by me (1pt min.). @ -no U/S interpreted by me (1pt. min.). @ -no What testing was considered but not performed or refused? (CT, X-rays, U/S, labs)? Why? @ -none What meds were considered but not given or refused? Why? @ -none Did you discuss the management of the patient with other professionals (professionals i.e. SUNDAY Husain, YARDAGE CONTROL OPERATOR, lab, RT, psych nurse, social and political studies professor, change of address clerk, teacher, worldwide chief creative officer, gearcase assembler)? Give summary @ -no Was smoking cessation discussed for >3mins.? @ -no Was critical care preformed (if so, how long)? @ -no Were there social determinants of health that impacted care today? How? (Homelessness, low income, unemployed, alcoholism, drug addiction, transportation, low edu. Level, literacy, decrease access to med. care, skilled nursing, rehab)? @ -none Was there de-escalation of care discussed even if they declined (Discuss DNR or withdrawal of care, Hospice)? DNR status @ -no What co-morbidities impacted this encounter? (DM, HTN, Smoking, COPD, CAD, Cancer, CVA, ARF, Chemo, Hep., AIDS, mental health diagnosis, sleep apnea, morbid obesity)? @ -none Was patient admitted / discharged? Hospital course, mention meds given and route, prescriptions, significant lab abnormalities, going to OR and other pertinent info. @ - Undiagnosed new problem with uncertain prognosis? @ -no Drug Therapy requiring intensive monitoring for toxicity (Heparin, Nitro, Insulin, Cardizem)? @ -no Were any procedures done? @ -no Diagnosis/symptom? @ - Acute, or Chronic, or Acute on Chronic? @ -Acute Uncomplicated (without systemic symptoms) or Complicated (systemic symptoms)? @ -Complicated Side effects of treatment? @ -no Exacerbation, Progression, or Severe Exacerbation? @ -exacerbation Poses a threat to life or bodily function? How? (Chest pain, [place], NV, pneumonia, PE, COPD, DKA, ARF, appy, cholecystitis, CVA, Diverticulitis, Homicidal, Suicidal, threat to staff... and all critical care pts) @ -yes Reevaluation #5: Differential Chest Pain: Stable Angina, Unstable Angina, STEMI, NSTEMI Aortic Dissection, Pneumothorax, Musculoskeletal, Esophageal Spasm GERD, Cholecystitis, Pancreatitis, Zoster, this is not meant to be an all-inclusive list. - Consultations Consultation #1: Spoke with [facility] who agrees to admit this patient Chest Pain MDM - MDM 59 male with strong and recent medical history of CAD with stent placement coming in for back pain just like prior pain when he did need stent placed. Patient will be admitted for ACS Critical Care Time Critical Care Time: Yes Total Critical Care Time: 31 Disposition Clinical Impression: Chest pain, CAD (coronary artery disease), Back pain Disposition: ADMITTED IP TO THIS HOSP Condition: Fair Is patient prescribed a controlled substance at d/c from ED?: No Referrals: Litzy Navarro DO [Primary Care Provider] - 1-2 days Time of Disposition: 17:40
[2024-09-06] MEDS: SODIUM CHLORIDE 0.9% 1,000 ML IV SCH (16:18)
[2024-09-06] MEDS: ONDANSETRON 4 MG/2 ML VIAL IVP STA (16:23)
[2024-09-06] MEDS: MORPHINE SULFATE 4 MG/ML SYRINGE IV STA (16:23)
[2024-09-06 16:30] LABS: Basophils # (A) 0.02 10*3/uL (0.00-0.10); Basophils % (A) 0.2 %; Eosinophils % (A) 1.2 %; HGB 15.3 g/dL (13.0-17.0); Lymphocytes # (A) 1.44 10*3/uL (0.90-5.00); Lymphocytes % (A) 16.6 %; MCHC 35.6 g/dL (32.0-37.0); Mean Platelet Volume 10.5 fL (9.5-12.2); Monocytes # (A) 0.67 10*3/uL (0.20-1.00); Monocytes % (A) 7.7 %; Neutrophils # (A) 6.42 10*3/uL (1.80-7.70); Platelet Count 270 10*3/uL (140-440); RBC 4.94 10*6/uL (4.40-5.60); RDW 12.5 % (11.5-14.5); WBC 8.68 10*3/uL (4.50-10.00)
--- NOTE | 2024-09-06 16:40 | XR ---
EXAMINATION TYPE: XR chest 2V DATE OF EXAM: 09/06/2024 4:28 PM COMPARISON: Chest radiograph dated 09/01/2024. CLINICAL INDICATION: Male, 59 years old with history of Weakness; [facility] TECHNIQUE: XR chest 2V Frontal and lateral views of the chest. FINDINGS: Lungs/Pleura: There is no evidence of pleural effusion, focal consolidation, or pneumothorax. Pulmonary vascularity: Unremarkable. Heart/mediastinum: Cardiomediastinal silhouette is unremarkable. Musculoskeletal: No acute osseous pathology. Other findings: None IMPRESSION: No acute cardiopulmonary disease/process. [facility], , 09/06/2024 4:37 PM
[2024-09-06 17:07] LABS: Partial Thromboplastin Time 23.6 sec (22.0-30.0); Prothrombin Time 10.7 sec (10.0-12.5)
[2024-09-06 17:35] LABS: ALT 44 U/L (4-49); AST 27 U/L (17-59); African American GFR (CKD) >90 (>60 ml/min/1.73 sqM); Albumin 4.3 g/dL (3.5-5.0); Alkaline Phosphatase 86 U/L (38-126); Anion Gap 9 mmol/L; Blood Urea Nitrogen 22 mg/dL (9-20); Calcium 9.3 mg/dL (8.4-10.2); Carbon Dioxide 25 mmol/L (22-30); Chloride 104 mmol/L (98-107); Glucose 96 mg/dL (74-99); Magnesium 2.1 mg/dL (1.6-2.3); Non-African American GFR(CKD) >90 (>60 ml/min/1.73 sqM); Phosphorus 3.1 mg/dL (2.5-4.5); Potassium 4.1 mmol/L (3.5-5.1); Sodium 138 mmol/L (137-145); Total Bilirubin 0.8 mg/dL (0.2-1.3); Total Protein 7.3 g/dL (6.3-8.2)
[2024-09-06] MEDS ORDERED: NALOXONE 0.4 MG/ML 1 ML VIAL IV PRN (17:39)
[2024-09-06] MEDS ORDERED: HEPARIN SODIUM 1,000 UN/ML (10ML VL) IV PRN (17:40)
[2024-09-06 17:42] LABS: NT-Pro-B-Type Natriuretic Pept 31 pg/mL
[2024-09-06] MEDS: HEPARIN SODIUM 1,000 UN/ML (10ML VL) IV ONE (18:24)
[2024-09-06] MEDS: HEPARIN SOD,PORK IN 0.45% NACL 25,000 UNIT in 0.45% NACL 1 250ML.BAG IV SCH (18:25)
[2024-09-06] MEDS: MORPHINE SULFATE 4 MG/ML SYRINGE IV PRN (21:05)
[2024-09-06] MEDS: ONDANSETRON 4 MG/2 ML VIAL IVP PRN (21:09)
[2024-09-06] MEDS ORDERED: ALBUTEROL NEBULIZED 2.5 MG/3 ML INHALATION PRN (23:02)
[2024-09-06] MEDS ORDERED: NITROGLYCERIN SL TABS 0.4 MG TAB SUBLINGUAL PRN (23:02)
[2024-09-07] MEDS: SYMBICORT 160-4.5 MCG INHALER INHALATION SCH (08:03)
[2024-09-07] MEDS: METOPROLOL SUCCINATE (ER) 25 MG TAB.ER.24H PO SCH (08:13)
[2024-09-07] MEDS: CHOLECALCIFEROL 125 MCG (5000 IU) TABLET PO SCH (08:13)
[2024-09-07] MEDS: ASCORBIC ACID 500 MG TAB PO SCH (08:13)
[2024-09-07] MEDS: ZINC SULFATE 220 MG CAP PO SCH (08:14)
[2024-09-07] MEDS: CLOPIDOGREL 75 MG TAB PO SCH (08:14)
[2024-09-07] MEDS: amLODIPine 5 MG TAB PO SCH (08:14)
[2024-09-07] MEDS: lisinopriL 20 MG TAB PO SCH (08:14)
[2024-09-07] MEDS: ASPIRIN 81 MG PO SCH (08:14)
[2024-09-07 09:40] LABS: Basophils # (A) 0.04 X 10*3/uL (0.00-0.10); Basophils % (A) 0.6 %; Eosinophils # (A) 0.17 X 10*3/uL (0.04-0.35); Eosinophils % (A) 2.5 %; HCT 41.7 % (39.6-50.0); HGB 13.5 g/dL (13.0-17.0); Lymphocytes # (A) 2.16 X 10*3/uL (0.90-5.00); Lymphocytes % (A) 31.3 %; MCH 29.7 pg (27.0-32.0); MCHC 32.4 g/dL (32.0-37.0); MCV 91.6 FL (80.0-97.0); Mean Platelet Volume 10.5 FL (9.5-12.2); Monocytes # (A) 0.66 X 10*3/uL (0.20-1.00); Monocytes % (A) 9.6 %; NRBC Per 100 WBC 0 X 10*3/uL (0.00-0.01); Neutrophils # (A) 3.85 X 10*3/uL (1.80-7.70); Neutrophils % (A) 55.9 %; Platelet Count 245 X 10*3/uL (140-440); RBC 4.55 X 10*6/uL (4.40-5.60); RDW 12.7 % (11.5-14.5); WBC 6.89 X 10*3/uL (4.50-10.00)
[2024-09-07 10:19] LABS: ALT 31 U/L (10-49); AST 20 U/L (14-35); Albumin 3.4 g/dL (3.8-4.9); Albumin/Globulin Ratio 1.62 Ratio (1.60-3.17); Alkaline Phosphatase 74 U/L (41-126); BUN/Creat Ratio 16.33 Ratio (12.00-20.00); Blood Urea Nitrogen 19.6 mg/dL (9.0-27.0); Calcium 8.3 mg/dL (8.7-10.3); Carbon Dioxide 22.6 mmol/L (21.6-31.8); Chloride 110 mmol/L (96-109); Globulin 2.1 g/dL (1.6-3.3); Glucose 87 mg/dL (70-110); Phosphorus 3.3 mg/dL (2.4-5.1); Potassium 4.5 mmol/L (3.5-5.5); Sodium 142 mmol/L (135-145); Total Bilirubin 0.3 mg/dL (0.3-1.2); Total Protein 5.5 g/dL (6.2-8.2)
--- NOTE | 2024-09-07 10:39 | P.CRDCN ---
History of Present Illness Consult date: 09/07/24 Consult reason: chest pain History of present illness: This is a 59-year-old male patient of Dr. Kruger with past medical history of history of valve surgery at 17 months of age, hypertension, dyslipidemia, coronary artery disease with PCI to the LAD, remote history of tobacco use. We have been asked to evaluate the patient for chest pain. Patient had a recent hospitalization in July at which time his EKG showed diffuse ST depression in the inferior lateral leads and he underwent a cardiac catheterization that showed 80% stenosis in the LAD, 50% in the first OM ostial. He underwent PCI of the LAD at that time with Dr. Diamond. He was discharged home on appropriate medications and then came back a few days later complaining of flushing of his face and concerns for elevated blood pressure and low heart rate. His blood pressure medications were optimized and metoprolol dose was reduced. He now presents due to pain in his back. He states he has chronic pain in his back but when he had the heart attack he also had pain in the back in the same area as well as arm involvement. He states his anxiety is controlled. He denies hear tburn. The pain in the thoracic back left of the spine is tender with palpation. Blood pressure 106/65, heart rate 65, pulse ox 96% on room air. Patient has been started on heparin drip. -EKG: Sinus rhythm with nonspecific ST-T wave changes. -Chest x-ray: No acute process. -Laboratory studies: Troponin negative x 3. CBC, INR, D-dimer, CMP are unremarkable. proBNP 31. Magnesium 2.1. -Home cardiac medications: Amlodipine 5 mg daily, aspirin 81 mg daily, Lipitor 80 mg at bedtime, Plavix 75 mg daily, lisinopril 40 mg daily, metoprolol succinate 25 mg daily, Nitrostat as needed. -Echocardiogram performed at [facility] on 08/18/2024 revealed normal LV size and function. Prominent posterior pericardial stripe. -Cardiac catheterization performed 08/19/[address] Kruger revealed 80% mid LAD stenosis, 50% ostial OM1 disease. Patient subsequently underwent stenting of the mid LAD performed by Dr. Diamond. Review Of Systems: At the time of my exam: CONSTITUTIONAL: Denies fever or chills. Reports thoracic back pain HEENT: Denies blurred vision, vision changes, or eye pain. Denies hemoptysis CARDIOVASCULAR: Denies chest pain. Denies orthopnea. Denies PND. Denies palpitations RESPIRATORY: Denies shortness of breath. GASTROINTESTINAL: Denies abdominal pain. Denies nausea or vomiting. HEMATOLOGIC: Denies bleeding disorders. GENITOURINARY: Denies any blood in urine. SKIN: Denies puritis. Denies rash. Physical examination: Gen: This is a 59-year-old male in no acute distress VS: reviewed HEENT: Head is atraumatic, normocephalic. Pupils equal, round. Sclerae is anicteric. NECK: Supple. No JVD. LUNGS: Clear to auscultation. No wheezes or rhonchi. No intercostal retractions. HEART: Regular rate and rhythm. No murmur. Tenderness to the thoracic area left side of the spine. Surgical scar to the left scapular area from previous valve surgery. ABDOMEN: Soft No tenderness. EXTREMITIES: No pedal edema. No calf tenderness. NEUROLOGICAL: Patient is awake, alert and oriented x3. 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 Kruger in 1 to 2 weeks Thank you kindly for this consultation. Nurse practitioner note has been reviewed, I agree with documented findings and plan of care. Patient was seen and examined. Past Medical History Past Medical History: Hyperlipidemia, Hypertension, Myocardial Infarction ([place]) Last Myocardial Infarction Date:: 08/17/2024 History of Any Multi-Drug Resistant Organisms: MRSA Date of last positivie culture/infection: 2009 MDRO Source:: head Past Surgical History: Appendectomy, Heart Catheterization With Stent, Orthopedic Surgery Additional Past Surgical History / Comment(s): heart sx, 1 stent Date of Last Stent Placement:: 08/19/2024 Past Psychological History: No Psychological Hx Reported Smoking Status: Never smoker Past Alcohol Use History: None Reported Past Drug Use History: None Reported Medications and Allergies Home Medications Medication Instructions Recorded Confirmed Type lisinopriL [Zestril] 40 mg PO DAILY 08/18/24 09/06/24 History Ascorbic Acid [Vitamin C] 500 mg PO BID #60 tab 08/20/24 09/06/24 Rx Aspirin 81 mg PO DAILY tab 08/20/24 09/06/24 Rx Atorvastatin [Lipitor] 80 mg PO HS #90 tab 08/20/24 09/06/24 Rx Cholecalciferol [Vitamin D3 (125 125 mcg PO DAILY #30 tab 08/20/24 09/06/24 Rx Mcg = 5000 Iu)] Clopidogrel [Plavix] 75 mg PO DAILY #90 tab 08/20/24 09/06/24 Rx Nitroglycerin Sl Tabs [Nitrostat] 0.4 mg SUBLINGUAL Q5M PRN #25 tab 08/20/24 09/06/24 Rx Zinc Sulfate [Orazinc] 220 mg PO DAILY #14 cap 08/20/24 09/06/24 Rx amLODIPine [Norvasc] 5 mg PO DAILY #30 tab 08/20/24 09/06/24 Rx Albuterol Inhaler [Ventolin Hfa 2 puff INHALATION RT-Q6H PRN 09/01/24 09/06/24 History Inhaler] Budesonide-Formot 160-4.5 Mcg 2 puff INHALATION RT-BID 09/01/24 09/06/24 History [Symbicort 160-4.5 Mcg Inhaler] Metoprolol Succinate (ER) [Toprol 25 mg PO DAILY 09/01/24 09/06/24 History XL] Allergies Allergy/AdvReac Type Severity Reaction Status Date / Time No Known Allergies Allergy Verified 09/06/24 18:15 Physical Exam Vitals: Vital Signs Temp Pulse Pulse Resp BP BP Pulse Ox 09/07/24 01:44 98.2 F 65 17 106/65 96 09/06/24 19:30 98.2 F 77 17 144/87 97 09/06/24 18:26 98.1 F 70 18 150/100 98 09/06/24 15:31 97.4 F L 80 17 127/81 98 Intake and Output 09/06/24 09/07/24 09/07/24 22:59 06:59 14:59 Other: # Voids 2 2 Weight 86.183 kg Results 09/07/24 05:59 09/07/24 05:59 Cardiac Enzymes 09/06/24 09/06/24 09/06/24 Range/Units 16:57 16:57 18:14 AST 27 (17-59) U/L Troponin I <0.012 <0.012 (0.000-0.034) ng/mL 09/06/24 Range/Units 20:52 AST (17-59) U/L Troponin I <0.012 (0.000-0.034) ng/mL Coagulation 09/06/24 09/07/24 09/07/24 Range/Units 16:14 00:22 05:59 PT 10.7 (10.0-12.5) sec APTT 23.6 41.6 H 43.9 H (22.0-30.0) sec CBC 09/06/24 Range/Units 16:14 WBC 8.68 (4.50-10.00) 10*3/uL RBC 4.94 (4.40-5.60) 10*6/uL Hgb 15.3 (13.0-17.0) g/dL Hct 43.0 (39.6-50.0) % Plt Count 270 (140-440) 10*3/uL Comprehensive Metabolic Panel 09/06/24 Range/Units 16:57 Sodium 138 (137-145) mmol/L Potassium 4.1 (3.5-5.1) mmol/L Chloride 104 (98-107) mmol/L Carbon Dioxide 25 (22-30) mmol/L BUN 22 H (9-20) mg/dL Creatinine 0.85 (0.66-1.25) mg/dL Glucose 96 (74-99) mg/dL Calcium 9.3 (8.4-10.2) mg/dL AST 27 (17-59) U/L ALT 44 (4-49) U/L Alkaline Phosphatase 86 (38-126) U/L Total Protein 7.3 (6.3-8.2) g/dL Albumin 4.3 (3.5-5.0) g/dL Current Medications Generic Name Dose Route Start Last Admin Trade Name Freq PRN Reason Stop Dose Admin Albuterol Sulfate 2.5 mg 09/06/24 23:02 Albuterol Nebulized 2.5 Mg/3 Ml INHALATION RT-Q6H PRN Cough Amlodipine Besylate 5 mg 09/07/24 09:00 Amlodipine 5 Mg Tab PO DAILY [facility] Ascorbic Acid 500 mg 09/07/24 09:00 Ascorbic Acid 500 Mg Tab PO BID [facility] Aspirin 81 mg 09/07/24 09:00 Aspirin 81 Mg PO DAILY [facility] Atorvastatin Calcium 80 mg 09/07/24 21:00 Atorvastatin 80 Mg Tab PO HS [facility] Budesonide/Formoterol Fumarate 2 puff 09/07/24 08:00 Symbicort 160-4.5 Mcg Inhaler INHALATION RT-BID [facility] Cholecalciferol 125 mcg 09/07/24 09:00 Cholecalciferol 125 Mcg (5000 Iu) Tablet PO DAILY [facility] Clopidogrel Bisulfate 75 mg 09/07/24 09:00 Clopidogrel 75 Mg Tab PO DAILY [facility] Heparin Sodium (Porcine) 0 unit 09/06/24 17:40 Heparin Sodium 1,000 Un/Ml (10ml Vl) IV PER PROTOCOL PRN Low PTT Protocol Sodium Chloride 1,000 mls @ 130 mls/hr 09/06/24 16:00 09/07/24 01:41 Saline 0.9% IV 130 mls/hr .Q7H42M [facility] Administration Heparin Sodium/Sodium Chloride 250 mls @ 10 mls/hr 09/06/24 17:45 09/06/24 18:25 25,000 unit/ Sodium Chloride IV 11.603 units/kg/hr .Q24H DAMIÁN 10 mls/hr Administration Protocol 11.603 UNITS/KG/HR Lisinopril 40 mg 09/07/24 09:00 Lisinopril 20 Mg Tab PO DAILY [facility] Metoprolol Succinate 25 mg 09/07/24 09:00 Metoprolol Succinate (Er) 25 Mg Tab.Er.24h PO DAILY [facility] Morphine Sulfate 4 mg 09/06/24 17:39 09/07/24 01:41 Morphine Sulfate 4 Mg/Ml Syringe IV 4 mg Q4HR PRN Administration Severe Pain (Scale 7 to 10) Naloxone HCl 0.2 mg 09/06/24 17:39 Naloxone 0.4 Mg/Ml 1 Ml Vial IV Q2M PRN Opioid Reversal Nitroglycerin 0.4 mg 09/06/24 23:02 Nitroglycerin Sl Tabs 0.4 Mg Tab SUBLINGUAL Q5M PRN Chest Pain Ondansetron HCl 4 mg 09/06/24 17:39 09/06/24 21:09 Ondansetron 4 Mg/2 Ml Vial IVP 4 mg Q8HR PRN Administration Nausea And Vomiting Zinc Sulfate 220 mg 09/07/24 09:00 Zinc Sulfate 220 Mg Cap PO DAILY DAMIÁN Intake and Output 09/06/24 09/07/24 09/07/24 22:59 06:59 14:59 Other: # Voids 2 2 Weight 86.183 kg 09/06/24 16:14 09/06/24 16:57
--- NOTE | 2024-09-07 14:50 | P.HPIM ---
History of Present Illness H&P Date: 09/07/24 History of present illness: 59-year-old male patient with a past medical history significant for coronary artery disease status post PCI to LAD, hypertension, hyperlipidemia, history of valve surgery at 17 months of age, who presented to ER with a complaint of chest pain, upper back pain, radiating to bilateral upper extremities with numbness. Patient reported that chest pain is worse with deep breaths. Patient had a recent hospitalization in July, EKG showed diffuse ST depression underwent ca rdiac catheterization which showed 80% stenosis in the LAD, 50% in the first OM ostial, underwent PCI of the LAD at that time. Later on patient admitted for flushing of the face, elevated blood pressure, low heart rate, his metoprolol dose was reduced prior to discharge. Now presented with chest pain, upper back pain. Patient reported that he has chronic upper back pain which has now worsened, also complained of radiating to bilateral upper extremities, also complained of anxiety. Chest x-ray negative for acute process. Afebrile, heart rate 82, respiratory rate 16, blood pressure 108/63, saturating 98% on room air. CBC unremarkable. BMP shows unremarkable except BUN 19.6, creatinine 1.2. 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 Norvasc. Chest pain pleuritic in nature, concern for pericarditis given recent myocardial infarction, started colchicine. Acute on chronic back pain: Patient complaining of acute worsening of upper back pain with radiation to neck and bilateral upper extremities Monitor with neurochecks MRI cervical and thoracic spine Last MRI lumbar spine in 2014 GERARDO: Mild GERARDO, Avoid nephrotoxin Monitor renal function Encourage oral hydration DVT prophylaxis Subcutaneous heparin Monitor vital signs and labs Labs and medication were reviewed. Continue same treatment. Further recommendations as per clinical course of the patient PHYSICAL EXAMINATION: GENERAL: The patient is A&O x3, NAD HEENT: EOMI, Sclerae anicteric, Moist Mucous membranes Neck: Supple, Non tender, No JVD PULMONARY: Equal breath souds B/L, No wheezing, No crackles. CARDIOVASCULAR: S1, S2 present. No murmurs, rubs, or gallops. ABDOMEN: Soft, nontender, nondistended, normoactive bowel sounds. No guarding or rebound tenderness. MUSCULOSKELETAL: No edema, No cyanosis. No clubbing. Normal ROM. Intact peripheral pulses. NEUROLOGICAL: CN 2-12 grossly intact. No FND REVIEW OF SYSTEMS: CONSTITUTIONAL: No fever, no malaise, no fatigue. HEENT: No recent visual problems or hearing problems. Denied any sore throat. CARDIOVASCULAR: No orthopnea, PND, no palpitations, no syncope. Complains of chest pain, complains of back pain. PULMONARY: No shortness of breath, no cough, no hemoptysis. GASTROINTESTINAL: No diarrhea, no nausea, no vomiting, no abdominal pain. NEUROLOGICAL: No headaches, no weakness, no numbness. HEMATOLOGICAL: Denies any bleeding or petechiae. GENITOURINARY: Denies any burning micturition, frequency, or urgency. MUSCULOSKELETAL/RHEUMATOLOGICAL: Denies any joint pain, swelling, or any muscle pain. ENDOCRINE: Denies any polyuria or polydipsia. The rest of the 14-point review of systems is negative. Dictation was produced using [employer] dictation software. please excuse any grammatical, word or spelling errors. Past Medical History Past Medical History: Hyperlipidemia, Hypertension, Myocardial Infarction (NM) Last Myocardial Infarction Date:: 08/17/2024 History of Any Multi-Drug Resistant Organisms: MRSA Date of last positivie culture/infection: 2009 MDRO Source:: head Past Surgical History: Appendectomy, Heart Catheterization With Stent, Orthopedic Surgery Additional Past Surgical History / Comment(s): heart sx, 1 stent Date of Last Stent Placement:: 08/19/2024 Past Psychological History: No Psychological Hx Reported Smoking Status: Never smoker Past Alcohol Use History: None Reported Past Drug Use History: None Reported Medications and Allergies Home Medications Medication Instructions Recorded Confirmed Type lisinopriL [Zestril] 40 mg PO DAILY 08/18/24 09/06/24 History Ascorbic Acid [Vitamin C] 500 mg PO BID #60 tab 08/20/24 09/06/24 Rx Aspirin 81 mg PO DAILY tab 08/20/24 09/06/24 Rx Atorvastatin [Lipitor] 80 mg PO HS #90 tab 08/20/24 09/06/24 Rx Cholecalciferol [Vitamin D3 (125 125 mcg PO DAILY #30 tab 08/20/24 09/06/24 Rx Mcg = 5000 Iu)] Clopidogrel [Plavix] 75 mg PO DAILY #90 tab 08/20/24 09/06/24 Rx Nitroglycerin Sl Tabs [Nitrostat] 0.4 mg SUBLINGUAL Q5M PRN #25 tab 08/20/24 09/06/24 Rx Zinc Sulfate [Orazinc] 220 mg PO DAILY #14 cap 08/20/24 09/06/24 Rx amLODIPine [Norvasc] 5 mg PO DAILY #30 tab 08/20/24 09/06/24 Rx Albuterol Inhaler [Ventolin Hfa 2 puff INHALATION RT-Q6H PRN 09/01/24 09/06/24 History Inhaler] Budesonide-Formot 160-4.5 Mcg 2 puff INHALATION RT-BID 09/01/24 09/06/24 History [Symbicort 160-4.5 Mcg Inhaler] Metoprolol Succinate (ER) [Toprol 25 mg PO DAILY 09/01/24 09/06/24 History XL] Allergies Allergy/AdvReac Type Severity Reaction Status Date / Time No Known Allergies Allergy Verified 09/06/24 18:15 Physical Exam Vitals: Vital Signs Temp Pulse Pulse Resp BP BP Pulse Ox 09/07/24 08:13 93 L 09/07/24 07:00 97.6 F 82 16 108/63 98 09/07/24 01:44 98.2 F 65 17 106/65 96 09/06/24 19:30 98.2 F 77 17 144/87 97 09/06/24 18:26 98.1 F 70 18 150/100 98 09/06/24 15:31 97.4 F L 80 17 127/81 98 Intake and Output 09/06/24 09/07/24 09/07/24 22:59 06:59 14:59 Intake Total 118 Balance 118 Intake: Oral 118 Other: # Voids 2 2 Weight 86.183 kg Results CBC & Chem 7: 09/07/24 05:59 09/07/24 05:59 Labs: Abnormal Lab Results - Last 24 Hours (Table) 09/06/24 09/07/24 09/07/24 Range/Units 16:57 00:22 05:59 APTT 41.6 H (22.0-30.0) sec Chloride 110 H (96-109) mmol/L BUN 22 H (9-20) mg/dL Calcium 8.3 L (8.7-10.3) mg/dL Total Protein 5.5 L (6.2-8.2) g/dL Albumin 3.4 L (3.8-4.9) g/dL 09/07/24 Range/Units 05:59 APTT 43.9 H (22.0-30.0) sec Chloride (96-109) mmol/L BUN (9-20) mg/dL Calcium (8.7-10.3) mg/dL Total Protein (6.2-8.2) g/dL Albumin (3.8-4.9) g/dL Thrombosis Risk Factor Assmnt - Choose All That Apply Any of the Below Risk Factors Present?: Yes Each Factor Represents 1 point: Age 41-60 years Other Risk Factors: No Thrombosis Risk Factor Assessment Total Risk Factor Score: 1 Thrombosis Risk Factor Assessment Level: Low Risk
[2024-09-07] MEDS: HEPARIN SODIUM,PORCINE 5,000 UNIT/ML 1 ML VIAL SQ SCH (21:35)
[2024-09-07] MEDS: ATORVASTATIN 80 MG TAB PO SCH (21:36)
[2024-09-07] MEDS: COLCHICINE 0.6 MG EACH PO SCH (21:36)
[2024-09-08 01:04] VITALS: RESP 16
[2024-09-08 09:04] LABS: Basophils # (A) 0.03 X 10*3/uL (0.00-0.10); Basophils % (A) 0.4 %; Eosinophils # (A) 0.19 X 10*3/uL (0.04-0.35); Eosinophils % (A) 2.7 %; HCT 38.8 % (39.6-50.0); HGB 12.8 g/dL (13.0-17.0); Lymphocytes # (A) 1.68 X 10*3/uL (0.90-5.00); Lymphocytes % (A) 24.2 %; MCH 30.5 pg (27.0-32.0); MCV 92.4 FL (80.0-97.0); Mean Platelet Volume 10.5 FL (9.5-12.2); Monocytes # (A) 0.63 X 10*3/uL (0.20-1.00); Monocytes % (A) 9.1 %; NRBC Per 100 WBC 0 X 10*3/uL (0.00-0.01); Neutrophils % (A) 63.3 %; Platelet Count 229 X 10*3/uL (140-440); RDW 12.7 % (11.5-14.5); WBC 6.95 X 10*3/uL (4.50-10.00)
[2024-09-08 09:08] LABS: BUN/Creat Ratio 13.73 Ratio (12.00-20.00); Blood Urea Nitrogen 15.1 mg/dL (9.0-27.0); Calcium 8.3 mg/dL (8.7-10.3); Chloride 106 mmol/L (96-109); Glucose 91 mg/dL (70-110); Potassium 4.2 mmol/L (3.5-5.5); Sodium 139 mmol/L (135-145)
--- NOTE | 2024-09-08 12:52 | P.PN ---
Subjective HISTORY OF PRESENT ILLNESS: This is a 59-year-old male patient of Dr. Kruger with past medical history of history of valve surgery at 17 months of age, hypertension, dyslipidemia, coronary artery disease with PCI to the LAD, remote history of tobacco use. We have been asked to evaluate the patient for chest pain. Patient had a recent hospitalization in July at which time his EKG showed diffuse ST depression in the inferior lateral leads and he underwent a cardiac catheterization that showed 80% stenosis in the LAD, 50% in the first OM ostial. He underwent PCI of the LAD at that time with Dr. Diamond. He was discharged home on appropriate medications and then came back a few days later complaining of flushing of his face and concerns for elevated blood pressure and low heart rate. His blood pressure medications were optimized and metoprolol dose was reduced. He now presents due to pain in his back. He states he has chronic pain in his back but when he had the heart attack he also had pain in the back in the same area as well as arm involvement. He states his anxiety is controlled. He denies heartburn. The pain in the thoracic back left of the spine is tender with palpation. Blood pressure 106/65, heart rate 65, pulse ox 96% on room air. Patient has been started on heparin drip. -EKG: Sinus rhythm with nonspecific ST-T wave changes. -Chest x-ray: No acute process. -Laboratory studies: Troponin negative x 3. CBC, INR, D-dimer, CMP are unremarkable. proBNP 31. Magnesium 2.1. -Home cardiac medications: Amlodipine 5 mg daily, aspirin 81 mg daily, Lipitor 80 mg at bedtime, Plavix 75 mg daily, lisinopril 40 mg daily, metoprolol succinate 25 mg daily, Nitrostat as needed. -Echocardiogram performed at [facility] on 08/18/2024 revealed normal LV size and function. Prominent posterior pericardial stripe. -Cardiac catheterization performed 08/19/[address] Kruger revealed 80% mid LAD stenosis, 50% ostial OM1 disease. Patient subsequently underwent stenting of the mid LAD performed by Dr. Diamond. 09/08/2024 Patient examined this morning at the bedside. Patient currently denies chest pain or pressure. He denies shortness of breath. He continues to report back pain this morning. He has an MRI pending. He does give history of a herniated disc in the past. Vital signs are stable. PHYSICAL EXAM: VITAL SIGNS: Reviewed. GENERAL: Well-developed in no acute distress. NECK: Supple. No JVD or thyromegaly LUNGS: Respirations even and unlabored. Lungs essentially clear to auscultation bilaterally. HEART: Regular rate and rhythm. S1 and S2 heard. EXTREMITIES: Normal range of motion. No clubbing or cyanosis. Peripheral pulses intact. No lower extremity edema ASSESSMENT: Atypical chest pain, acute coronary syndrome ruled out Back pain with reported history of herniated disc History of CAD with recent stent to the LAD on 08/19/2024 Hypertension Dyslipidemia Remote history of tobacco use Congenital valve defect status post valvular surgery at 17 months of age-per patient, details not available PLAN: Continue dual antiplatelet therapy with aspirin and Plavix due to recent stenting on 08/19/2024 Continue additional cardiac medications including amlodipine, Lipitor, lisinopril, and metoprolol Patient is currently stable for discharge from a cardiac standpoint Patient to follow-up postdischarge in the office with Dr. Kruger We will sign off. Please reconsult if needed. Nurse practitioner note has been reviewed by physician. Signing provider agrees with the documented findings, assessment, and plan of care documented by [employer] as a scribe. Objective - Vital Signs Vital signs: Vital Signs Temp 97.6 F 09/08/24 07:00 Pulse 59 L 09/08/24 07:00 Resp 16 09/08/24 07:00 BP 110/68 09/08/24 07:00 Pulse Ox 98 09/08/24 08:16 FiO2 Intake & Output 09/07/24 09/08/24 09/08/24 18:59 06:59 18:59 Intake Total 1518 221 Balance 1518 221 Intake: Intake, IV Titration 900 Amount Sodium Chloride 0.9% 1, 900 000 ml @ 130 mls/hr IV . Q7H42M [facility] Rx#:[id number] Oral 618 221 Other: # Voids 2 2 1 # Bowel Movements 0 - Labs CBC & Chem 7: 09/08/24 03:59 09/08/24 03:59 Labs: Abnormal Lab Results - Last 24 Hours (Table) 09/08/24 09/08/24 Range/Units 03:59 03:59 RBC 4.20 L (4.40-5.60) X 10*6/uL Hgb 12.8 L (13.0-17.0) g/dL Hct 38.8 L (39.6-50.0) % Calcium 8.3 L (8.7-10.3) mg/dL
[2024-09-08] MEDS ORDERED: ACETAMINOPHEN TAB 325 MG TAB PO PRN (13:21)
--- NOTE | 2024-09-08 13:36 | MR ---
EXAMINATION TYPE: MR cspine/tspine wo con DATE OF EXAM: 09/08/2024 1:13 PM COMPARISON: Chest radiograph 09/06/2024, MRI lumbar spine 05/18/2015, CTA chest 08/17/2024 CLINICAL INDICATION: Male, 59 years old with history of B/L UE PAIN, NECK UPPER BACK PAIN, Neck and m id back pain, BUE radiculopathy. IV Contrast: None TECHNIQUE: Multiplanar, multisequence imaging of the cervicothoracic spine is performed without intra venous contrast. FINDINGS: The cervicothoracic vertebral bodies have preserved heights. Anterior wedge compression deformity wit h Schmorl's node involving the superior endplate of the L1 vertebral body. Approximately 10% height l oss and retropulsion. No definitive increased STIR signal. Additional Schmorl's node involving the liang perior endplate of the T12 vertebral body. Mild S-shaped scoliotic curvature of the thoracic spine. G rade 1 retrolisthesis of C5 on C6. Anterior osteophytosis at C5-C6 and C6-C7. Type II Modic changes i nvolving the endplates around the C5-C6 disc. The remaining osseous structures demonstrate normal bon e marrow signal. Multilevel disc desiccation throughout the cervicothoracic disc. The craniocervical junction appears to be within normal limits. The cervicothoracic spinal cord appears unremarkable. No significant central canal or neuroforaminal stenosis at C2-C3. Broad-based disc bulge with mild effacement of the anterior thecal sac at C3-C4. Mild left neural for aminal stenosis. The right neuroforamen is patent. Broad-based disc bulge with mild effacement of the anterior thecal sac at C4-C5. No significant neuro foraminal stenosis. Eccentric left posterior disc and spur complex with mild to moderate effacement of the anterior theca l sac at C5-C6. There is minimal mass effect upon the anterior spinal cord. Uncovertebral joint hyper trophy resulting in mild left and moderate right neural foraminal stenosis. Posterior disc aspect complexes at C6-C7 with prominence of the ligamentum flavum resulting in modera te central canal stenosis. Uncovertebral joint hypertrophy demonstrated. Mild right and moderate left neural foraminal stenosis. No significant central canal or neural foraminal stenosis at C7-T1. Tiny left paracentral disc protrusion at T4-T5 and T5-T6 without significant effacement of the anteri or thecal sac. No neural foraminal stenosis at these levels. No other significant central canal or neuroforaminal stenosis of the thoracic spine. Cardiomegaly. IMPRESSION: 1. Mild multilevel degenerative disc disease of the cervicothoracic spine. Most pronounced at C5-C7 as described above. Additional tiny disc protrusions at T4-T5 and T5-T6 without significant central c anal stenosis. 2. S-shaped scoliotic curvature of the thoracic spine. Grade 1 retrolisthesis of C5 on C6. 3. Remote anterior wedge compression deformity or Schmorl's node involving the L1 vertebral body. [facility], , 09/08/2024 1:33 PM
[2024-09-08] MEDS: PREGABALIN 50 MG CAP PO SCH (14:11)
[2024-09-08] MEDS: DULoxetine HCL 30 MG CAPSULE.DR PO SCH (14:12)
[2024-09-08 15:51] VITALS: BP 162/75; PULSE 60; TEMP 98.5
== END 2024-09-08 16:53 | disposition home or self-care (01) ==
LOC: EC 15:28 → 6NMEDSUR 17:39
PROVIDERS: ADMIT Hospitalist; ATTEND Hospitalist
DX: R07.89 Other chest pain (principal); M54.9 Dorsalgia, unspecified; N17.9 Acute kidney failure, unspecified; I25.10 Atherosclerotic heart disease of native coronary artery without angina pectoris; I10 Essential (primary) hypertension; E78.5 Hyperlipidemia, unspecified; I25.2 Old myocardial infarction; Z87.891 Personal history of nicotine dependence; Z95.5 Presence of coronary angioplasty implant and graft; Z79.51 Long term (current) use of inhaled steroids; Z79.899 Other long term (current) drug therapy; Z79.82 Long term (current) use of aspirin; Z79.02 Long term (current) use of antithrombotics/antiplatelets
CPT/HCPCS: 96376 ×2; 96366 ×2; 96372 ×2; 96375; 96365; 99291; 36415; 94640 ×3; 94760 ×2; 93005; 85379; 83880; 80053 ×2; 80048; 83605; 83735 ×2; 84100 ×2; 84484; 85025 ×3; 85610; 85730 ×2; 71046; 72141; 72146; G0378 ×3; J2270 ×2; J1644 ×4; J2405 ×2

== ENCOUNTER 2024-09-22 06:31 | Emergency (ER) | payer OTHER ==
[2024-09-22 06:41] VITALS: TEMP 97.7
--- NOTE | 2024-09-22 07:23 | ED ---
Back Pain HPI - General Chief Complaint: Back Pain/Injury Stated Complaint: R Side/Leg Pain Time Seen by Provider: 09/22/24 06:43 Source: patient, RN notes reviewed Limitations: no limitations - History of Present Illness Initial Comments: 59-year-old male presents emergency department complaint of low back pain. Patient states she has had back pain for several days. Patient states it is worse with movement. Denies any bowel, bladder and cons retention no saddle anesthesias. Pain and radiates down to his mid right leg without any associated weakness. No abdominal pain. Patient going to chiropractor for his upper back which is better states this is new he does admit that he has been told he is to get bad back issues and usually just follows up with chiropractor. Patient denies any other associated symptoms. - Related Data Home Medications Medication Instructions Recorded Confirmed lisinopriL [Zestril] 40 mg PO DAILY 08/18/24 09/06/24 Albuterol Inhaler [Ventolin Hfa 2 puff INHALATION RT-Q6H PRN 09/01/24 09/06/24 Inhaler] Budesonide-Formot 160-4.5 Mcg 2 puff INHALATION RT-BID 09/01/24 09/06/24 [Symbicort 160-4.5 Mcg Inhaler] Metoprolol Succinate (ER) [Toprol 25 mg PO DAILY 09/01/24 09/06/24 XL] Previous Rx's Medication Instructions Recorded Ascorbic Acid [Vitamin C] 500 mg PO BID #60 tab 08/20/24 Aspirin 81 mg PO DAILY tab 08/20/24 Atorvastatin [Lipitor] 80 mg PO HS #90 tab 08/20/24 Cholecalciferol [Vitamin D3 (125 125 mcg PO DAILY #30 tab 08/20/24 Mcg = 5000 Iu)] Clopidogrel [Plavix] 75 mg PO DAILY #90 tab 08/20/24 Nitroglycerin Sl Tabs [Nitrostat] 0.4 mg SUBLINGUAL Q5M PRN #25 tab 08/20/24 Zinc Sulfate [Orazinc] 220 mg PO DAILY #14 cap 08/20/24 amLODIPine [Norvasc] 5 mg PO DAILY #30 tab 08/20/24 Cyclobenzaprine [Flexeril] 10 mg PO TID PRN #15 tab 09/22/24 predniSONE 50 mg PO DAILY #5 tab 09/22/24 Allergies Allergy/AdvReac Type Severity Reaction Status Date / Time No Known Allergies Allergy Verified 09/22/24 06:37 Review of Systems ROS Statement: Those systems with pertinent positive or pertinent negative responses have been documented in the HPI. ROS Other: All systems not noted in ROS Statement are negative. Past Medical History Past Medical History: Hyperlipidemia, Hypertension, Myocardial Infarction ([place]) Last Myocardial Infarction Date:: 08/17/2024 History of Any Multi-Drug Resistant Organisms: MRSA Date of last positivie culture/infection: 2009 MDRO Source:: head Past Surgical History: Appendectomy, Coronary Bypass/CABG, Heart Catheterization With Stent, Hernia Repair, Orthopedic Surgery Additional Past Surgical History / Comment(s): heart sx, 1 stent, testicular, knee, Date of Last Stent Placement:: 08/19/2024 Past Psychological History: No Psychological Hx Reported Smoking Status: Never smoker Past Alcohol Use History: None Reported Past Drug Use History: None Reported General Exam Limitations: no limitations General appearance: alert, in no apparent distress Head exam: Present: atraumatic, normocephalic, normal inspection Eye exam: Present: normal appearance, PERRL, EOMI. Absent: scleral icterus, conjunctival injection, periorbital swelling Neck exam: Present: normal inspection, full ROM. Absent: tenderness, meningismus, lymphadenopathy Respiratory exam: Present: normal lung sounds bilaterally. Absent: respiratory distress, wheezes, rales, rhonchi, stridor Cardiovascular Exam: Present: regular rate, normal rhythm, normal heart sounds. Absent: systolic murmur, diastolic murmur, rubs, gallop, clicks GI/Abdominal exam: Present: soft, normal bowel sounds. Absent: distended, tenderness, guarding, rebound, rigid Extremities exam: Present: normal inspection, full ROM, normal capillary refill. Absent: tenderness, pedal edema, joint swelling, calf tenderness Back exam: Present: full ROM, tenderness, muscle spasm, paraspinal tenderness. Absent: vertebral tenderness Neurological exam: Present: alert, oriented X3, reflexes normal. Absent: motor sensory deficit Course Vital Signs 09/22/24 06:37 Temperature 97.7 F Pulse Rate 66 Respiratory 16 Rate Blood Pressure 181/67 O2 Sat by Pulse 94 L Oximetry Medical Decision Making - Medical Decision Making Was pt. sent in by a medical professional or institution (Dr., PA, VETERINARY MANAGER, urgent care, hospital, or custodial...) When possible be specific @ -No Did you speak to anyone other than the patient for history (EMS, parent, family, police, friend...)? What history was obtained from this source @ -No Did you review nursing and triage notes (agree or disagree)? Why? @ -I reviewed and agree with nursing and triage notes Were old charts reviewed (outside hosp., previous admission, EMS record, old EKG, old radiological studies, urgent care reports/EKG's, custodial records)? Report findings @ -No old charts were reviewed Differential Diagnosis (chest pain, altered mental status, abdominal pain women, abdominal pain men, vaginal bleeding, weakness, fever, dyspnea, syncope, headache, dizziness, GI bleed, back pain, seizure, CVA, palpatations, mental health, musculoskeletal)? @ -Differential Back Pain: Strain, zoster, cauda equina syndrome, epidural abscess, vertebral osteomyelitis, discitis, fracture, subluxation, disc herniation, DJD, spinal stenosis, dissection, AAA, pancreatitis, peptic ulcer disease, pyelonephritis, kidney stone, this is not meant to be an all-inclusive list. EKG interpreted by me (3pts min.). @ -None X-rays interpreted by me (1pt min.). @ -X-ray lumbar spine showing old compression fracture L1, degenerative changes L3-L5 CT interpreted by me (1pt min.). @ -None done U/S interpreted by me (1pt. min.). @ -None done What testing was considered but not performed or refused? (CT, X-rays, U/S, labs)? Why? @ -None What meds were considered but not given or refused? Why? @ -None Did you discuss the management of the patient with other professionals (professionals i.e. SUNDAY Husain, VETERINARY MANAGER, lab, RT, psych nurse, social work lecturer, legal coordinator, teacher, space operations officer, registered nurse hh case manager)? Give summary @ -No Was smoking cessation discussed for >3mins.? @ -No Was critical care preformed (if so, how long)? @ -No Were there social determinants of health that impacted care today? How? (Homelessness, low income, unemployed, alcoholism, drug addiction, transportation, low edu. Level, literacy, decrease access to med. care, long term, rehab)? @ -No Was there de-escalation of care discussed even if they declined (Discuss DNR or withdrawal of care, Hospice)? DNR status @ -No What co-morbidities impacted this encounter? (DM, HTN, Smoking, COPD, CAD, Cancer, CVA, ARF, Chemo, Hep., AIDS, mental health diagnosis, sleep apnea, morbid obesity)? @ -None Was patient admitted / discharged? Hospital course, mention meds given and route, prescriptions, significant lab abnormalities, going to OR and other pertinent info. @ -Discharge patient symptoms are improved. Patient does have lumbar strain, spasms no red flag symptoms. Patient is discharged in stable condition return for as discussed. Undiagnosed new problem with uncertain prognosis? @ -No Drug Therapy requiring intensive monitoring for toxicity (Heparin, Nitro, Insulin, Cardizem)? @ -No Were any procedures done? @ -No Diagnosis/symptom? @ -Lumbar strain Acute, or Chronic, or Acute on Chronic? @ -acute Uncomplicated (without systemic symptoms) or Complicated (systemic symptoms)? @ -Uncomplicated Side effects of treatment? @ -No Exacerbation, Progression, or Severe Exacerbation? @ -No Poses a threat to life or bodily function? How? (Chest pain, [place], [place], pneumonia, PE, COPD, DKA, ARF, appy, cholecystitis, CVA, Diverticulitis, Homicidal, Suicidal, threat to staff... and all critical care pts) @ -No Disposition Clinical Impression: Back pain Disposition: HOME SELF-CARE Condition: Stable Instructions (If sedation given, give patient instructions): Acute Low Back Pain (ED) Additional Instructions: Please return to the Emergency Department if symptoms worsen or any other concerns. Prescriptions: Cyclobenzaprine [Flexeril] 10 mg PO TID PRN #15 tab PRN Reason: Muscle Spasm predniSONE 50 mg PO DAILY #5 tab Is patient prescribed a controlled substance at d/c from ED?: No Referrals: Litzy Navarro DO [Primary Care Provider] - 1-2 days Mustapha Scherer DO [Doctor of Osteopathic Medicine] - 1-2 days Time of Disposition: 08:53
[2024-09-22] MEDS: CYCLOBENZAPRINE 10 MG TAB PO STA (07:24)
[2024-09-22] MEDS: HYDROcodone/APAP 5-325MG 1 EACH TAB PO STA (07:24)
--- NOTE | 2024-09-22 07:35 | XR ---
EXAMINATION TYPE: XR lumbar spine 3V DATE OF EXAM: 09/22/2024 7:26 AM COMPARISON: CT chest 08/17/2024 CLINICAL INDICATION: Male, 59 years old with history of pain; PHH, pain FINDINGS: 5 lumbar type vertebral bodies. Moderate degenerative disc disease L3-L4 and L5-S1 with narrowed disc spaces. Moderate facet arthropathy mid to lower lumbar spine. Grade 1 anterolisthesis L3-L4. Mild liang perior endplate deformity L1 with a anterior wedging and 15% anterior height loss. Finding was presen t on the patient's 08/17/2024 CT chest. IMPRESSION: 1. Old L1 anterior wedge deformity. No new compression collapse is seen. 2. Moderate degenerative disc disease L3-L4 and L5-S1. 3. Emsp-rt-qernideg facet arthropathy mid to lower lumbar spine with a grade 1 anterolisthesis L3-L4. [facility], Workstation: [facility], 09/22/2024 7:33 AM
[2024-09-22] MEDS: ACET/COD 300 MG/30 MG STARTER PACK 6 TAB BTL PO STA (09:09)
[2024-09-22 09:24] VITALS: BP 128/86; PULSE 76; RESP 18
== END 2024-09-22 09:24 | disposition home or self-care (01) ==
LOC: EC 06:31
DX: S39.012A Strain of muscle, fascia and tendon of lower back, initial encounter (principal); X58.XXXA Exposure to other specified factors, initial encounter
CPT/HCPCS: 72100; 99283